=== PATIENT | female | born 1990 | race Caucasian/White ===

== ENCOUNTER 2018-07-14 15:35 | Emergency (ER) | payer MEDICAID, SELFPAY ==
[2018-07-14 15:35] VITALS: BP 119/86; PULSE 74; RESP 16; TEMP 37.2; O2SAT 97; BMI 20.8
--- NOTE | 2018-07-14 15:59 | ED.RN ---
states pain relieves with flexing shouloders and cracking back.
--- NOTE | 2018-07-14 16:02 | ED.VISSUMM ---
- ER Visit Summary Date of Service: 07/14/18 Chief Complaint: Chest and abdominal pain History of Present Illness: The patient is a 27 F who presents with chest and abdominal pain that has been getting worse over the past 3 days. Patient states that she had some pain in her right calf 4 days ago. Patient states the pain is over her entire chest. Patient states she has some pain over the right upper quadrant of her abdomen as well. Patient describes the pain as heaviness and pressure. Patient states the pain is worse with deep breathing and with movement of her torso. Patient states the pain improves with certain positions. Patient admits to some shortness of breath. Patient also admits to couple episodes of reflux symptoms. Patient denies any cough or fever. Patient denies any nausea or vomiting. Patient denies any diaphoresis. Patient denies any cardiac risk factors. Physical Examination: Vital signs are stable. Patient is afebrile. Patient is in no acute distress. Oral mucosa is pink and moist. Neck is supple. Trachea is midline. There is no JVD noted. Heart was regular rate and rhythm. Lungs are clear and equal bilateral. There is adequate respiratory effort noted. Abdomen is soft. Bowel sounds are normal. There is tenderness over the right upper quadrant. There is no rebound or guarding noted. Diaz sign is negative. Cranial nerves II through XII are intact. There are no focal motor or sensory deficits noted. There is some mild tenderness of the right calf. There is no edema noted. There is no pain with dorsiflexion of the ankle. There is some mild pain with plantarflexion of the right ankle however. The remaining physical exam is within normal limits. Test Results: EKG showed a normal sinus rhythm with a rate of 61. There are no acute ST or T-wave changes noted. CBC, comprehensive metabolic profile, d-dimer, troponin were obtained and were all normal. Urinalysis does show evidence of urinary tract infection. Emergency Department Course and Treatment: Patient was given a prescription for Bactrim. Patient was instructed to follow-up with her primary care physician in 5-7 days. Patient understood and was agreeable with the plan. All questions were answered. Disposition: Discharge home Impression: Chest pain of uncertain etiology, urinary tract infection This note was generated with [employer] software. It may contain incorrect words, spelling, and punctuation that were not noted in review of the chart prior to signing ED Disposition - Plan for ED Patient: Disposition: Home or Assisted Living Chief Complaint: Chest Pain Diagnosis: Urinary tract infection, Chest pain of uncertain etiology Instructions: ED Chest Pain Atypical Unkn Cause, ED UTI Cystitis Female Prescriptions: Smz/Tmp Ds [Bactrim Ds] 1 tab PO BID #6 tab Referrals: Ehsan Lynn, TERRESTRIAL ECOLOGIST-C [Primary Care Provider] -
--- NOTE | 2018-07-14 16:06 | ED.DCSUM_ITS ---
- ER Visit Summary Date of Service: 07/14/18 Chief Complaint: Chest and abdominal pain History of Present Illness: The patient is a 27 F who presents with chest and abdominal pain that has been getting worse over the past 3 days. Patient states that she had some pain in her right calf 4 days ago. Patient states the pain is over her entire chest. Patient states she has some pain over the right upper quadrant of her abdomen as well. Patient describes the pain as heaviness and pressure. Patient states the pain is worse with deep breathing and with movement of her torso. Patient states the pain improves with certain positions. Patient admits to some shortness of breath. Patient also admits to couple episodes of reflux symptoms. Patient denies any cough or fever. Patient denies any nausea or vomiting. Patient denies any diaphoresis. Patient denies any cardiac risk factors. Physical Examination: Vital signs are stable. Patient is afebrile. Patient is in no acute distress. Oral mucosa is pink and moist. Neck is supple. Trachea is midline. There is no JVD noted. Heart was regular rate and rhythm. Lungs are clear and equal bilateral. There is adequate respiratory effort noted. Abdomen is soft. Bowel sounds are normal. There is tenderness over the right upper quadrant. There is no rebound or guarding noted. Diaz sign is negative. Cranial nerves II through XII are intact. There are no focal motor or sensory deficits noted. There is some mild tenderness of the right calf. There is no edema noted. There is no pain with dorsiflexion of the ankle. There is some mild pain with plantarflexion of the right ankle however. The remaining physical exam is within normal limits. Test Results: EKG showed a normal sinus rhythm with a rate of 61. There are no acute ST or T-wave changes noted. CBC, comprehensive metabolic profile, d-dimer , troponin were obtained and were all normal. Urinalysis does show evidence of urinary tract infection. Emergency Department Course and Treatment: Patient was given a prescription for Bactrim. Patient was instructed to follow-up with her primary care physician in 5-7 days. Patient understood and was agreeable with the plan. All questions were answered. Disposition: Discharge home Impression: Chest pain of uncertain etiology, urinary tract infection This note was generated with [employer] software. It may contain incorrect words, spelling, and punctuation that were not noted in review of the chart prior to signing ED Disposition - Plan for ED Patient: Disposition: Home or Assisted Living Chief Complaint: Chest Pain Diagnosis: Urinary tract infection, Chest pain of uncertain etiology Instructions: ED Chest Pain Atypical Unkn Cause, ED UTI Cystitis Female Prescriptions: Smz/Tmp Ds [Bactrim Ds] 1 tab PO BID #6 tab Referrals: Ehsan Lynn, ACTOR UNDERSTUDY-C [Primary Care Provider] -
[2018-07-14 16:13] LABS: Absolute Lymphocyte Count 1.73 X10^3/ul (0.83-4.51); Absolute Neutrophil Count 2.7 X10^3/uL (2.0-7.7); Basophil# 0.03 X10^3/uL; Basophil% 0.6 % (0-1); Eosinophil# 0.06 X10^3/uL; Eosinophils% 1.2 % (0-5); Hematocrit 42.2 % (37-47); Lymphocyte # 1.73 X10^3/ul (4.0); Lymphocyte % 35.4 % (19-41); Mean Corp Hgb Conc 33.2 g/gl (32-36); Mean Corpuscular Hgb 30.8 pg (27.0-32.0); Mean Platelet Vol. 10.3 fl (6.2-12.0); Monocyte% 8.2 % (0-10); Neutrophil # 2.67 X10^3/uL (2.7-7.7); Neutrophil % 54.6 % (47-70); Platelet Count 253 K/mm3 (150-450); RBC Distribution Width CV 12.7 % (11.6-14.6); Red Blood Count 4.54 M/mm3 (4.2-5.4); White Blood Count 4.9 K/mm3 (4.4-11.0)
[2018-07-14 16:15] LABS: Mucous, Urine 0 SEEN /hpf (<or=2+)
[2018-07-14 16:16] LABS: Color, Urine Yellow (Yellow); Glucose, Dipstick Normal (Normal); Ketone-Dipstick Negative (Negative); Leukocyte Esterase-Dipstick 500 /ul (Negative); Nitrite-Dipstick Negative (Negative); Occult Blood-Urine 25 /ul (Negative); Protein-Dipstick 15 mg/dl (Negative); Specific Gravity, Urine 1.025 (1.002-1.030); Urine Bilirubin Dipstick Negative (Negative); Urine Clarity Sl. Cloudy (Clear); Urine Urobilinogen Normal (Normal)
[2018-07-14 16:17] LABS: POSITIVE COUNT NO; POSITIVE DIFFERENTIAL NO; POSITIVE MORPHOLOGY NO
[2018-07-14 16:28] LABS: ALB/GLOB Ratio 1.2 RATIO (0.9-2.4); AST(SGOT) 20 U/L (15-37); Alanine Aminotransfer ALT/SGPT 26 U/L (13-56); Alkaline Phosphatase 50 U/L (45-117); Anion Gap 4 (5-15); BUN 13 mg/dL (7-18); BUN/Creat Ratio 17.7 RATIO (10-20); Calcium,Total 8.8 mg/dL (8.5-10.1); Chloride 106 mmol/L (98-107); Creatinine, Serum 0.74 mg/dL (0.55-1.02); EST Glomerular Filtration Rate 101 mL/min (>60); Est Glom Filt Rate - Afr Amer 122 mL/min (>60); Estimated Creatinine Clearance 91.12 ml/min; Globulin 3.4 g/dL (2.2-4.2); Glucose 88 mg/dL (74-106); Lipase 142 U/L (73-393); Potassium 4.3 mmol/L (3.5-5.1); Protein, Total 7.4 g/dL (6.4-8.2); Sodium Level 140 mmol/L (136-145)
[2018-07-14 16:32] LABS: Bacteria 1+ /hpf (None Seen); Red Blood Cells-Urine 0-5 SEEN /hpf (0-5); Squamous Epithelial Cells - UA 5-10 SEEN /hpf (5-10); White Blood Cells 10-25 SEEN /hpf (0-5)
[2018-07-14 16:50] LABS: D-Dimer Quantitative (DVT/PE) 0.41 FEU/ug/m (0.27-0.49)
[2018-07-14 17:39] VITALS: BP 110/76; PULSE 80; RESP 18; O2SAT 98
[2018-07-14 17:55] VITALS: BP 127/66; PULSE 58; RESP 16; O2SAT 97
== END 2018-07-14 17:56 | disposition home or self-care (01) ==
PROVIDERS: Emergency Provider Emergency Medicine; Family Provider Nurse Practitioner Family; PCP Nurse Practitioner Family
DX: R07.9 Chest pain, unspecified (principal); N39.0 Urinary tract infection, site not specified
CPT/HCPCS: 80053; 81001; 83690; 84484; 85025; 85379; 93005; 99283; A4216

== ENCOUNTER → 2019-05-26 15:54 | Outpatient (CLI) | payer MEDICAID, SELFPAY ==
[2019-05-31 16:18] LABS: HPV Reflexed? NOT INDICATED
== END ==
PROVIDERS: PCP Nurse Practitioner Family; Visit Provider Obstetrics & Gynecology
DX: Z12.4 Encounter for screening for malignant neoplasm of cervix (principal)
CPT/HCPCS: 88175; G0145

== ENCOUNTER 2020-02-17 13:15 | Emergency (ER) | payer MEDICAID, SELFPAY ==
[2020-02-17 13:16] VITALS: BP 150/90; PULSE 103; RESP 16; TEMP 37.4; BMI 20.7
--- NOTE | 2020-02-17 13:27 | ED.DCSUM_ITS ---
History of Present Illness Chief Complaint: Rash Informant: Patient Onset: Yesterday Context: Gradual Onset Timing: Continuous Current Severity: Moderate Maximum Severity: Severe Narrative: The patient is a 29-year-old female that presents to the emergency department diffuse rash. Started yesterday as a small spot on her left wrist. Since then it is increased. She describes it as intensely burning and itching. She actually went to an outside emergency department. She was diagnosed with a contact dermatitis and given a prescription for prednisone. She states she has not filled it, but her symptoms have worsened. She denies any fevers or chills. She denies any new lotions, soaps, shampoos. She states she is never had anything like this before. Prior similar symptoms: No Recent Illness/Hospitalization: No Past Medical History - Allergies and Home Meds Allergies/Adverse Reactions: Allergies morphine Adverse Reaction (Verified 02/17/20 13:18) Itching Primary Care Physician: Ehsan Lynn, [employer]-C [NON-STAFF] - Prior records reviewed: Yes Past Medical History: None Surgical History: noncontributory Smoking Status: Current some day smoker Review of Systems General: Denies: Chills, Fever, Sweats Eyes: Denies: Visual changes - bilaterally, Diplopia ENT: Denies: Rhinorrhea, Sore throat Cardiovascular: Denies: Chest pain, Palpitations Respiratory: Denies: Dyspnea, Cough, Dyspnea on exertion Gastrointestinal: Denies: Abdominal pain, Nausea, Vomiting, Diarrhea, Melena, Hematochezia Genitourinary: Denies: Dysuria, Hematuria, Frequency Musculoskeletal: Denies: Back pain, Extremity Pain Skin: Reports: Rash. Denies: Wounds Neurological: Denies: Headache, Weakness, Numbness Physical Exam Vital Signs/Narrative: Vital Signs Temp Pulse Resp BP 02/17/20 13:16 99.3 F H 103 H 16 150/90 H Inital Vital Signs reviewed: Yes General: Well nourished, Well developed, No Acute Distress Head: Normocephalic, Atraumatic Eyes: Perrl, EOMI ENT: Moist mucous membranes, No rhinorrhea Neck: Supple, Nontender Cardiovascular: Regular rate, Regular rhythm, No murmurs Respiratory: No distress, CTA bilaterally, Chest nontender Abdomen: Soft, Nontender, Nondistended, Normal bowel sounds Back: Nontender, Normal Inspection Extremities: Nontender, No edema Skin: Normal color, Rash - Linear eruptions on both hands, dorsum of both arms, but no cellulitis. Scant weeping. Neurological: Alert, Oriented x3, Cranial nerves II-XII grossly intact, Normal Strength, Normal Sensation Psychological: Normal affect, Normal Mood Diagnostic/Tx/Re-eval - Medical Decision Making The patient has physical exam findings consistent with contact dermatitis. It is been going on for 24 hours and has acutely worsened. She has been on no new medications. There are linear eruptions. I do not feel this represents Linares-Eddie, erysipelas, or other dangerous process. The patient was treated with Kenalog and Vistaril with some improvement. She will get her prednisone filled. I will write her Vistaril to help with her itching. She will be discharged home. Impression 1. Contact dermatitis ED Disposition - Plan for ED Patient: Instructions: Poison Cookie Dermatitis Prescriptions: Hydroxyzine Pamoate [Vistaril] 50 mg PO 4X/DAY PRN PRN #60 cap PRN Reason: Itching Prescription Printed Referrals: Ehsan Lynn, VENTURA-C [NON-STAFF] -
[2020-02-17] MEDS: hydrOXYzine 50 MG/ML Vial IM (13:31)
[2020-02-17] MEDS: Triamcinolone Acetonide 40 MG/ML Vial IM (13:31)
[2020-02-17 14:22] VITALS: BP 114/78; PULSE 80; RESP 18
== END 2020-02-17 14:22 | disposition home or self-care (01) ==
PROVIDERS: Emergency Provider Emergency Medicine
DX: L23.7 Allergic contact dermatitis due to plants, except food (principal); F17.200 Nicotine dependence, unspecified, uncomplicated
CPT/HCPCS: 96372; 99283

== ENCOUNTER → 2020-11-29 10:46 | Outpatient (CLI) | payer MEDICAID, SELFPAY ==
[2020-12-01 20:07] LABS: Chlamydia By Nucleic Acid AMP Negative (Negative)
[2020-12-01 20:43] LABS: Gonococcus By Nucleic Acid AMP Negative (Negative)
== END ==
PROVIDERS: Visit Provider Obstetrics & Gynecology
DX: Z11.3 Encounter for screening for infections with a predominantly sexual mode of transmission (principal)
CPT/HCPCS: 87491; 87591

== ENCOUNTER → 2022-03-25 | Outpatient (CLI) | payer MEDICAID, SELFPAY | END | disposition home or self-care (01) | PROVIDERS: Visit Provider Obstetrics & Gynecology | DX: L29.2 Pruritus vulvae (principal) ==

== ENCOUNTER 2024-07-01 15:26 | Emergency (ER) | payer MEDICAID, SELFPAY ==
[2024-07-01 15:26] VITALS: BP 119/78; BP 89/55; PULSE 74; PULSE 83; RESP 12; RESP 14; TEMP 36.1; O2SAT 95; O2SAT 98; BMI 24.3
--- NOTE | 2024-07-01 15:39 | EDS_ITS ---
HPI History of Present Illness Chief Complaint: Rash [facility] Medical History no medical history Home Medications ?Medication ?Instructions ?Recorded ?Last Taken ?Type hydroxyzine pamoate 50 mg capsule 50 mg PO 4X/DAY PRN PRN Itching 02/17/20 Unknown Rx #60 caps hydroxyzine HCl 50 mg tablet 50 mg PO TID PRN itching #30 tabs 07/01/24 Unknown Rx prednisone 20 mg tablet 20 mg PO DAILY #5 tabs 07/01/24 Unknown Rx Allergy/AdvReac Type Severity Reaction Status Date / Time morphine AdvReac Itching Verified 07/01/24 15:26 Social History Smoking Status: Current some day smoker EXAM Physical Exam Const Vital Signs: 07/01/24 15:26 07/01/24 15:26 Temperature 97 F L Temperature Source Temporal Pulse Rate 74 83 Respiratory Rate 14 12 Blood Pressure 119/78 89/55 L Blood Pressure Mean 91 66 Pulse Ox 98 95 Oxygen Delivery Method Room Air MDM MDM MDM Narrative Medical decision making narrative: HISTORY OF PRESENT ILLNESS: 33-year-old female presents with concern for poison cookie. She states she came in contact with what she believes is poison cookie yesterday. She notes she bumped her right eye with her right hand and her left knee. She now has lesions that are familiar to her as representing poison cookie. REVIEW OF SYSTEMS: Pertinent positives: Rash Pertinent negatives: Fever, vomiting PHYSICAL EXAM: Nursing triage notes reviewed, Vital signs reviewed Constitutional: please see mdm Lungs: Clear to auscultation, No wheezing or rales. No increased work of breathing, no conversational dyspnea, no accessory muscle use, no nasal flaring. No respiratory distress noted Heart: Regular rate and rhythm, No murmurs, No rubs and No gallops, 2+ distal pulses (radial, femoral, posterior tibial) in all extremities Abdomen: Soft, there is no tenderness, rigidity, rebound or guarding, no obvious peritoneal signs, no palpable pulsatile abdominal masses, no auscultated abdominal bruit : No CVAT Extremities: No edema Skin: Erythema noted as below MEDICAL DECISION MAKING: Chief Complaint: Rash External records reviewed: Prior ED records reviewed: ED visit from 2019 was reviewed and showed diagnosis of contact dermatitis Factors affecting care: Contact dermati Social determinants of health: none [] History obtained from others: none Consults: none MDM Narrative: Patient was initially hemodynamically stable, afebrile and nontoxic-appearing. Exam with slight erythema noted to the right upper eyelid, between the second and third digit of the right hand as well as on the left knee. These lesions are not warm that are blanchable there is no obvious vesicle. No obvious crepitus or bullae. There is no drainage. Clinically consistent with likely plant based dermatitis. Will give empiric steroids I considered the following differential diagnosis: Contact dermatitis, cellulitis, plant based dermatitis, Exam consistent with likely plant based dermatitis. Will give steroids here in the ED in the form of Decadron and an oral prescription of prednisone. Will give hydroxyzine for itching relief The patient and/or family, caregivers express understanding. The patient and/or family, caregivers agrees with the plan. Shared decision making: I will have a discussion with the patient and or visitors regarding risk/benefits of further testing or admission. They will be made aware of of the risk/benefits inherent in this decision they will be given the opportunity to voice understanding. Total critical care time today provided was at least 0 minutes. This excludes separately billable procedures. Critical care time (if documented) is secondary to the patient having high probability of clinically significant/life threatening deterioration in the patient's condition which required my urgent intervention. Impression: 1. Contact dermatitis 2. Poison cookie Dispo: Discharge home This note was generated with [employer] dictation software. It may contain incorrect words, spelling, and punctuation that were not noted in review of the chart prior to signing. Discharge Plan Triage Chief Complaint: Rash ED Provider: Jayy Stevens Dx/Rx/DC Orders Instructions: ED Poison Cookie Rash Prescriptions: New prednisone 20 mg tablet 20 mg PO DAILY Qty: 5 0RF hydroxyzine HCl 50 mg tablet 50 mg PO TID PRN (Reason: itching) Qty: 30 0RF No Action hydroxyzine pamoate 50 MG capsule 50 mg PO 4X/DAY PRN PRN (Reason: Itching) Qty: 60 0RF Primary Care Provider: Care Physician,No Primary Referrals: Syd Raya DO [Med Staff - [facility]] - Activity Restrictions/Additional Instructions: Thank you for trusting us with your care today! Please take Tylenol (2 pills, 650 mg), ibuprofen (2 pills, 400 mg) every 6 hours as needed for pain and fever control. Please take prednisone as prescribed. Please take hydroxyzine as needed for itching relief. Please try not to itch or irritate the area as this can lead to secondary infec tion Please return to the emergency department if your symptoms change or worsen. Specifically if you notice redness, swelling get worse over the next 2 to 3 days. If you develop fever, the area appears warm and has drainage of yellow or green fluid. These are signs of infection will require antimicrobial therapy if they develop. Please follow with your primary care physician for further outpatient evaluation and management. Print Language: Albanian Disposition Disposition: Home, Self Care
[2024-07-01] MEDS: dexAMETHasone 10 MG/ML Vial IM (15:57)
[2024-07-01 16:02] VITALS: BP 95/77; PULSE 81; RESP 16; TEMP 37.2; O2SAT 99
== END 2024-07-01 16:14 | disposition home or self-care (01) ==
PROVIDERS: Emergency Provider Emergency Medicine; PCP Nurse Practitioner Family; Visit Provider Emergency Medicine
DX: L23.7 Allergic contact dermatitis due to plants, except food (principal); F17.200 Nicotine dependence, unspecified, uncomplicated
CPT/HCPCS: 96372; 99282

== ENCOUNTER 2024-07-24 17:23 | Emergency (ER) | payer MEDICAID, SELFPAY ==
[2024-07-24 17:25] VITALS: BP 118/84; PULSE 75; RESP 18; TEMP 36.6; O2SAT 100; BMI 24.3
--- NOTE | 2024-07-24 17:52 | EDS_ITS ---
HPI <OLE Wheatley - Last Filed: 07/24/24 18:29> HPI - Female History of Present Illness Chief Complaint: Female C/O Narrative Narrative: Patient presenting today due to concerns for chlamydia. She had unprotected intercourse about 1 week ago, she found out that her partner was exposed to somebody else who has chlamydia. She would like to be treated. She reports that she has been having an odorous white-colored discharge and vaginal irritation. She reports intermittent pelvic pain. She denies fevers, chills, abdominal pain, nausea, and vomiting. PFSH <OLE Wheatley - Last Filed: 07/24/24 18:29> [facility] Home Medications ?Medication ?Instructions ?Recorded ?Last Taken ?Type hydroxyzine pamoate 50 mg capsule 50 mg PO 4X/DAY PRN PRN Itching 02/17/20 Unknown Rx #60 caps hydroxyzine HCl 50 mg tablet 50 mg PO TID PRN itching #30 tabs 07/01/24 Unknown Rx prednisone 20 mg tablet 20 mg PO DAILY #5 tabs 07/01/24 Unknown Rx doxycycline hyclate 100 mg capsule 100 mg PO BID 7 days #13 caps 07/24/24 Unknown Rx metronidazole 500 mg tablet 500 mg PO BID #13 tabs 07/24/24 Unknown Rx Allergy/AdvReac Type Severity Reaction Status Date / Time morphine AdvReac Itching Verified 07/24/24 17:25 Social History Smoking Status: Current some day smoker tobacco type: cigarettes ROS <OLE Wheatley - Last Filed: 07/24/24 18:29> ROS ED Constitutional Constitutional ED: Denies chills or fever(s) Cardiovascular Cardiovascular: Denies chest pain Respiratory/Chest Respiratory/Chest: Denies dyspnea Gastrointestinal Gastrointestinal: Denies abdominal pain, nausea or vomiting Genitourinary Genitourinary ED: Denies dysuria, hematuria or urinary urgency Musculoskeletal Musculoskeletal: Denies arthralgias or myalgias Integumentary Denies rash Neurologic Neurologic: Denies weakness EXAM <OLE Wheatley - Last Filed: 07/24/24 18:29> Physical Exam Const Vital Signs: 07/24/24 17:25 07/24/24 18:18 Temperature 97.8 F 98.1 F Temperature Source Temporal Pulse Rate 75 82 Respiratory Rate 18 19 H Blood Pressure 118/84 H 116/87 H Blood Pressure Mean 95 96 Pulse Ox 100 97 Oxygen Delivery Method Room Air <Dr. John Cronin, - Last Filed: 07/24/24 18:39> Physical Exam Const Vital Signs: 07/24/24 17:25 07/24/24 18:18 Temperature 97.8 F 98.1 F Temperature Source Temporal Pulse Rate 75 82 Respiratory Rate 18 19 H Blood Pressure 118/84 H 116/87 H Blood Pressure Mean 95 96 Pulse Ox 100 97 Oxygen Delivery Method Room Air MDM <Lydia Allen PA - Last Filed: 07/24/24 18:29> MDM MDM Narrative Medical decision making narrative: Patient presenting today requesting to be tested for STDs. She had a recent sexual partner who was exposed to chlamydia and she would like to be treated for this along with other STDs. She has been having foul-smelling vaginal discharge and intermittent pelvic discomfort. I did offer to perform a pelvic exam, she declines. She will be tested for gonorrhea, chlamydia, trichomonas. UA is negative for UTI and . She be treated here with Rocephin, doxycycline, and Flagyl. She will be given prescriptions for Doxy and Flagyl. I encouraged that she notify all sexual partners of any positive results and she refrain from intercourse until her symptoms have resolved and she is done with her antibiotics. Return instructions were discussed, patient discharged in stable condition. Lab Data Attestation: I reviewed the patient's lab results. Labs: Laboratory Results - last 24 hr 07/24/24 17:54 Urine Color Yellow Urine Clarity Sl. Cloudy Urine pH 5.0 Ur Specific Chambers 1.030 Urine Protein 30 H Urine Glucose (UA) Normal Urine Ketones 5 H Urine Occult Blood 50 H Urine Nitrite Negative Urine Bilirubin 1 H Urine Urobilinogen 1 H Ur Leukocyte Esterase 100 H Urine RBC 5-10 SEEN Urine WBC 10-25 SEEN Ur Squamous Epith Cells 0-5 SEEN Calcium Oxalate Crystal 1+ Amorphous Sediment 1+ Urine Bacteria RARE Urine Mucus 0 SEEN Urine Test Negative <Dr. John Cronin DO - Last Filed: 07/24/24 18:39> MDM MDM Narrative Medical decision making narrative: Patient presenting today requesting to be tested for STDs. She had a recent sexual partner who was exposed to chlamydia and she would like to be treated for this along with other STDs. She has been having foul-smelling vaginal discharge and intermittent pelvic discomfort. I did offer to perform a pelvic exam, she declines. She will be tested for gonorrhea, chlamydia, trichomonas. UA is negative for UTI and . She be treated here with Rocephin, doxycycline, and Flagyl. She will be given prescriptions for Doxy and Flagyl. I encouraged that she notify all sexual partners of any positive results and she refrain from intercourse until her symptoms have resolved and she is done with her antibiotics. Return instructions were discussed, patient discharged in stable condition. I have personally performed a face to face assessment of the patient and have reviewed the CULLEN note. I personally made/approved the management plan and take responsibility for the patient management. I performed a substantive portion of the visit including all aspects of the following. My thao findings include: There are concerns for STDs with increasing vaginitis malodorous white discharge for last 2 days. New partner a week ago. From not that partner exposed to chlamydia. She had chlamydia back in high school. Allergies to morphine. No antibiotic allergies. Exam alert nontoxic soft abdomen. She declines a pelvic exam. Urine sent for GC chlamydia and trichomonas. She is given Rocephin in the ED 7-day course of Doxy and Flagyl for coverage of chlamydia trichomonas and bacterial vaginosis. Lab Data Labs: Laboratory Results - last 24 hr 07/24/24 17:54 Urine Color Yellow Urine Clarity Sl. Cloudy Urine pH 5.0 Ur Specific Chambers 1.030 Urine Protein 30 H Urine Glucose (UA) Normal Urine Ketones 5 H Urine Occult Blood 50 H Urine Nitrite Negative Urine Bilirubin 1 H Urine Urobilinogen 1 H Ur Leukocyte Esterase 100 H Urine RBC 5-10 SEEN Urine WBC 10-25 SEEN Ur Squamous Epith Cells 0-5 SEEN Calcium Oxalate Crystal 1+ Amorphous Sediment 1+ Urine Bacteria RARE Urine Mucus 0 SEEN Urine Test Negative Discharge Plan Triage Chief Complaint: Female C/O ED Midlevel Provider: Lydia Allen ED Provider: John Cronin Dx/Rx/DC Orders Clinical Impression: Encounter for assessment of STD exposure, Vaginitis Instructions: If You Think You Have an STI (STD) Prescriptions: New doxycycline hyclate 100 mg capsule 100 mg PO BID 7 Days Qty: 13 0RF metronidazole 500 mg tablet 500 mg PO BID Qty: 13 0RF No Action hydroxyzine pamoate 50 MG capsule 50 mg PO 4X/DAY PRN PRN (Reason: Itching) Qty: 60 0RF prednisone 20 mg tablet 20 mg PO DAILY Qty: 5 0RF hydroxyzine HCl 50 mg tablet 50 mg PO TID PRN (Reason: itching) Qty: 30 0RF Primary Care Provider: Kindra Nelson NP Referrals: Ehsan Lynn NP, MANAGED CARE COORDINATOR-C [Non-Staff] - Activity Restrictions/Additional Instructions: Please notify any sexual partners if you are positive. Return for any concerning or worsening symptoms. Print Language: American Disposition Disposition: Home, Self Care
[2024-07-24 18:16] LABS: Mucous, Urine 0 SEEN /hpf (<or=2+)
[2024-07-24 18:18] VITALS: BP 116/87; PULSE 82; RESP 19; TEMP 36.7; O2SAT 97
[2024-07-24] MEDS: metroNIDAZOLE 500 MG Tablet PO (18:21)
[2024-07-24] MEDS: Doxycycline 100 MG CAPSULE PO (18:21)
[2024-07-24 18:22] LABS: Color, Urine Yellow (Yellow); Glucose, Dipstick Normal (Normal); Ketone-Dipstick 5 mg/dl (Negative); Leukocyte Esterase-Dipstick 100 /ul (Negative); Nitrite-Dipstick Negative (Negative); Occult Blood-Urine 50 /ul (Negative); Protein-Dipstick 30 mg/dl (Negative); Urine Clarity Sl. Cloudy (Clear); Urine Urobilinogen 1 mg/dl (Normal)
[2024-07-24] MEDS: Ceftriaxone 500 MG Vial IM (18:22)
[2024-07-24 18:24] LABS: Urine Bilirubin Dipstick 1 mg/dL (Negative)
[2024-07-24 18:25] LABS: Internal QC Validated? YES +Cl - CLEAR BKGD; Pregnancy, Urine Negative Negative
[2024-07-24 18:26] LABS: Record Kit Lot#,Urine Preg 772476
[2024-07-24 18:29] LABS: Red Blood Cells-Urine 5-10 SEEN /hpf (0-5); White Blood Cells 10-25 SEEN /hpf (0-5)
[2024-07-24 18:30] LABS: Amorphous Sediment 1+; Bacteria RARE /hpf (None Seen); Calcium Oxalate Crystals Ur 1+ /hpf (<or=2+); Squamous Epithelial Cells - UA 0-5 SEEN /hpf (5-10)
== END 2024-07-24 19:03 | disposition home or self-care (01) ==
LOC: ED 18:25
PROVIDERS: Physician Assistant; Emergency Provider Emergency Medicine; PCP Nurse Practitioner Family; Visit Provider Emergency Medicine
DX: Z11.3 Encounter for screening for infections with a predominantly sexual mode of transmission (principal); N76.0 Acute vaginitis; F17.210 Nicotine dependence, cigarettes, uncomplicated
CPT/HCPCS: 81001; 81025; 87491; 87591; 87661; 96372; 99282

== ENCOUNTER 2024-09-20 20:32 | Emergency (ER) | payer MEDICAID, SELFPAY ==
[2024-09-20 20:33] VITALS: BP 113/79; PULSE 60; RESP 18; TEMP 35.9; O2SAT 99; BMI 24.6
[2024-09-20 20:45] LABS: Mucous, Urine 0 SEEN /hpf (<or=2+)
[2024-09-20 20:47] LABS: Color, Urine Yellow (Yellow); Glucose, Dipstick Normal (Normal); Ketone-Dipstick Negative (Negative); Leukocyte Esterase-Dipstick 100 /ul (Negative); Nitrite-Dipstick Negative (Negative); Occult Blood-Urine 50 /ul (Negative); Protein-Dipstick 15 mg/dl (Negative); Specific Gravity, Urine 1.025 (1.002-1.030); Urine Bilirubin Dipstick Negative (Negative); Urine Clarity Clear (Clear); Urine Urobilinogen Normal (Normal)
[2024-09-20 20:53] LABS: Absolute Lymphocyte Count 2.78 X10^3/uL (0.83-4.51); Absolute Neutrophil Count 4.3 X10^3/uL (2.0-7.7); Basophil# 0.06 X10^3/uL; Basophil% 0.7 % (0-1); Eosinophils% 2.4 % (0-5); Hematocrit 40.7 % (37-47); Hemoglobin 13.8 g/dL (12.0-15.0); Lymphocyte # 2.78 X10^3/ul (0.83-4.51); Mean Corp Hgb Conc 33.9 g/dL (32-36); Mean Corpuscular Hgb 30.3 pg (27.0-32.0); Mean Corpuscular Volume 89.3 fL (81-99); Mean Platelet Vol. 9.7 fl (6.2-12.0); Monocyte# 0.83 X10^3/uL; Monocyte% 10.1 % (0-10); NRBC Flagged by Analyzer 0 % (0-5); Neutrophil # 4.29 X10^3/uL (2.7-7.7); Neutrophil % 52.6 % (47-70); Platelet Count 301 K/mm3 (150-450); RBC Distribution Width CV 11.9 % (11.6-14.6); RBC Distribution Width SD 38.4 fl (35.1-43.9); Red Blood Count 4.56 M/mm3 (4.2-5.4); White Blood Count 8.2 K/mm3 (4.4-11.0)
[2024-09-20 20:54] LABS: Bacteria 1+ /hpf (None Seen); Squamous Epithelial Cells - UA 0-5 SEEN /hpf (5-10); White Blood Cells 0-5 SEEN /hpf (0-5)
[2024-09-20 20:55] LABS: Red Blood Cells-Urine 0-5 SEEN /hpf (0-5)
[2024-09-20 21:05] LABS: Internal QC Validated? YES +Cl - CLEAR BKGD; Pregnancy, Serum, hCG Quali. NEGATIVE Negative
[2024-09-20 21:06] LABS: Anion Gap 4 (5-15); BUN 14 mg/dL (7-18); BUN/Creat Ratio 17.9 RATIO (10-20); Calcium,Total 9.2 mg/dL (8.5-10.1); Chloride 107 mmol/L (98-107); Creatinine, Serum 0.78 mg/dL (0.55-1.02); EST Glomerular Filtration Rate 90 mL/min (>60); Est Glom Filt Rate - Afr Amer 109 mL/min (>60); Estimated Creatinine Clearance 84.79 ml/min; Glucose 98 mg/dL (74-106); Potassium 3.7 mmol/L (3.5-5.1); Sodium Level 139 mmol/L (136-145)
[2024-09-20 22:59] VITALS: BP 124/75; PULSE 63; RESP 16; O2SAT 98
--- OUTSIDE RECORDS SUMMARY | 2024-09-20 23:22 | XMS RPT_ITS | CCD ---
Author Organization [facility]form[facility] Partnership [facility] Care Team Providers Care Station Baggage Porter Name Role Phone GRACE CASTRON - LEAD DATA ENTRY OPERATOR, EHSAN Piper Primary Care Phys ician Spring PT, Arlet Unavailable Unavailable GRACE QUEZADA - LEAD DATA ENTRY OPERATOR, EHSAN Piper Primary Care U avinash SALAZAR MD, DR AJIT Sandoval Attending Unavailable MASSIMO ELECTRIC APPLIANCE INSTALLER-LEAD DATA ENTRY OPERATOR, YRAN Salvador Attending Un available GRACE QUEZADA - LEAD DATA ENTRY OPERATOR, EHSAN Piper Primary Care U avinash LYNN ELECTRIC APPLIANCE INSTALLER - LEAD DATA ENTRY OPERATOR, EHSAN Piper Primary Care U navailable NITA ELECTRIC APPLIANCE INSTALLER-LEAD DATA ENTRY OPERATOR, SACHIN Attending Irmavai yao Lynn CNP, Ehsan Piper Primary Care Provider Allergies Allergy Classification Reported Allergen(s) Allergy Type Date of Onset Reaction(s) Facility (9 sources) Morphine; Translations: [morphine] Drug Allergy 02-04-2013 [facility] (2 sources) Prochlorperazine ; Translations: [prochlorperazin e] Drug Allergy [facility] [place] Comment on above: Severe anxiety Medications Current Medications Medication Drug Class(es) Dates Sig (Normalized) Sig (Original) acetaminophen 325 mg / butalbital 50 mg / caffeine 40 mg oral tablet (1 source) Barbiturate, Central Nervous System Stimulant, Methylxanthine Start: 08-16-2023 End: 08-19-2023 take 1 tablet by mouth every four hours as needed APAP/butalbital/c affeine 325-50-40 mg oral tablet (Fioricet) Dose = 1 tab(s), Oral, q4h, PRN as needed, X 3 day(s), # 18 tab(s), 0 Refill(s) Start Date: 08/16/23 Stop Date: 08/19/23 Status: Ordered albuterol MDI (90 mcg/inh) CFC free inhalation aerosol (7 sources) Start: 11-28-2021 End: 12-28-2021 take 2 puff(s) by inhalation every six hours albuterol MDI (90 mcg/inh) CFC free inhalation aerosol 2 puff(s), Inhalation, q6h, # 18 gram(s), 0 Refill(s), Pharmacy: [id number], Leukocytosis Neutrophilia, 157.5, cm, 11/28/21 9:22:00 EST, Height, kg, 11/28/21 9:17:00 EST, Dosing Weight Start Date: 11/28/21 Stop Date: 12/28/21 Status: Ordered Start: 08-21-2021 take 2 puff(s) by in halation every four hours as needed for wheezing albuterol MDI (90 mcg/inh) CFC free inhalation aerosol 2 puff(s), Inhalation, q4h, PRN as needed for wheezing, # 18 gram(s), 0 Refill(s), Pharmacy: [email or web address], Chest congestion, 157.5, cm, 08/21/21 10:07:00 EDT, Height, kg, 08/21/21 10:07:00 EDT, Dosing Weight Start Date: 08/21/21 Status: Ordered copper 313 mg drug implant (2 sources) Copper-containing Intrauterine Device Start: 08-26-2023 ParaGard intrauterine device 0 Refill(s) Start Date: 08/26/23 Status: Ordered dexamethasone 6 mg oral tablet (2 sources) Corticosteroid Start: 11-28-2021 End: 12-08-2021 dexamethasone 6 mg oral tablet Dose : 6 mg = 1 tab(s), Oral, qDay, X 10 day(s), # 10 tab(s), 0 Refill(s), 12/08/21 19:08:00 EST, Pharmacy: [email or web address], Leukocytosis Neutrophilia, 157.5, cm, 11/28/21 9:22:00 EST, Height, kg, 11/28/21 9:17:00 EST, Dosing Weight Start Date: 11/28/21 Stop Date: 12/08/21 Status: Ordered guaiFENesin 600 mg oral tablet (2 sources) Start: 11-28-2021 End: 12-05-2021 guaiFENesin 600 mg oral tablet, extended release Dose : 600 mg = 1 tab(s), Oral, q12h, X 7 day(s), # 14 tab(s), 0 Refill(s), 12/05/21 19:09:00 EST, Pharmacy: [email or web address], Leukocytosis Neutrophilia, 157.5, cm, 11/28/21 9:22:00 EST, Height, kg, 11/28/21 9:17:00 EST, Dosing Weight Start Date: 11/28/21 Stop Date: 12/05/21 Status: Ordered levoFLOXacin 750 mg oral tablet (2 sources) Quinolone Antimicrobial Start: 11-28-2021 End: 12-08-2021 levoFLOXacin 750 mg oral tablet Dose : 750 mg = 1 tab(s), Oral, q24h, X 10 day(s), # 10 tab(s), 0 Refill(s), 12/08/21 19:08:00 EST, Pharmacy: [email or web address], Leukocytosis Neutrophilia, 157.5, cm, 11/28/21 9:22:00 EST, Height, 59.9, kg, 11/28/21 9:17:00 EST, Dosing Weight Start Date: 11/28/21 Stop Date: 12/08/21 Status: Ordered Promethazine (2 sources) Phenothiazine Start: 11-28-2021 End: 12-08-2021 Promethazine DM 6.25 mg-15 mg/5 mL oral syrup Dose = 5 mL, Oral, q6hr, PRN for cough, not to exceed 6 doses/day, X 10 day(s), # 200 mL, 0 Refill(s), Pharmacy: [id number], Leukocytosis Neutrophilia, 157.5, cm, 11/28/21 9:22:00 EST, Height, kg, 11/28/21 9:17:00 EST, Dosing Weight Start Date: 11/28/21 Stop Date: 12/08/21 Status: Ordered SUMAtriptan 50 mg oral tablet (1 source) Serotonin-1b and Serotonin-1d Receptor Agonist Start: 08-26-2023 End: 09-25-2023 SUMAtriptan 50 mg oral tablet Dose : 50 mg = 1 tab(s), Oral, qDay, PRN as needed for migraine headache, 1 tab onset , may repeat in 2 hrs. MAX 4 tab(s)/24hrs, X 30 day(s), # 9 tab(s), 0 Refill(s), 09/25/23 10:07:00 AM EDT, Pharmacy: [email or web address], 158, cm, 08/26/23 9:02:00 EDT, Height, kg, 08/26/23 9:02:00 EDT, Dosing Weight Start Date: 08/26/23 Stop Date: 09/25/23 Status: Ordered Completed/Discontinued Medications Medication Drug Class(es) Dates Sig (Normalized) Sig (Original) diclofenac sodium 50 mg delayed release oral tablet (2 sources) Nonsteroidal Anti-inflammatory Drug Start: 08-26-2023 End: 09-25-2023 diclofenac sodium 50 mg oral delayed release tablet Dose : 50 mg = 1 tab(s), Oral, q6h, PRN as needed for pain, # 30 tab(s), 0 Refill(s), Pharmacy: [email or web address], 158, cm, 08/26/23 9:02:00 EDT, Height, kg, 08/26/23 9:02:00 EDT, Dosing Weight Start Date: 08/26/23 Stop Date: 09/25/23 Status: Ordered methadone hydrochloride 5 mg oral tablet (6 sources) Opioid Agonist Start: 08-26-2023 methadone 5 mg oral tablet Dose : 5 mg = 1 tab(s), Oral, q6h, PRN as needed for pain, 0 Refill(s), 59 Start Date: 08/26/23 Status: Ordered Start: 09-27-2020 methadone See Instructions, 24mg Oral, 0 Refill(s), 50 Start Date: 09/27/20 Status: Ordered Start: 09-27-2020 take 2 tablets by mo uth once daily methadone (DOLOPHINE) 10 mg tablet Take 20 mg by mouth once daily. 09/27/2020 Active Problems Problem Classification Problem Date Documented Da te Episodic/Chronic Esophageal disorders (8 sources) Gastroesophageal reflux disease 10-05-2020 Chronic Headache; including migraine (11 sources) Headache; Translations: [Headache, unspecified] 12-21-2020 Episodic Menstrual disorders (5 sources) Irregular periods; Translations: [Irregular menstruation, unspecified] Chronic Nonmalignant breast conditions (5 sources) Pain of breast; Translations: [Mastodynia] Episodic Other acquired deformities (8 sources) Scoliosis of thoracic spine 10-01-2020 Chronic Comment on above: XR of Thorasic Spine MPRESSION: Minimal S-shaped curvature and multilevel degenerative changes. Other circulatory disease (8 sources) Postural orthostatic tachycardia syndrome 12-21-2020 Episodic Other connective tissue disease (8 sources) Spasm 12-21-2020 Episodic Other injuries and conditions due to external causes (1 source) Injury of left foot; Translations: [Unspecified injury of left foot, initial encounter] 11-11-2021 Episodic Other nervous system disorders (8 sources) Chronic back pain greater than three months duration 09-27-2020 Chronic Other non-traumatic joint disorders (1 source) Acute ankle pain; Translations: [Pain in left ankle and joints of left foot] 11-11-2021 Episodic Residual codes; unclassified (4 sources) Past history of procedure 12-17-2021 Episodic Comment on above: ECHO Summary: 1. Left ventricle: The cavity size is normal. Wall thickness is normal. Systolic function is normal. The estimated ejection fraction is 60-65%. Wall motion is normal; there are no regional wall motion abnormalities. Normal diastolic function. 2. Right ventricle: The RV systolic pressure by Doppler is 10 mm Hg. 3. Right atrium: The estimated right atrial pressure is 3 mm Hg. Spondylosis; intervertebral disc disorders; other back problems (8 sources) Degeneration of thoracolumbar intervertebral disc 10-05-2020 Chronic Comment on above: 09/2020: X-ray of th oracic spine results: Minimal S-shaped curvature of the thoracic spine. There are areas of disc height loss and osteophyte formation in the lower thoracic spine consistent with degenerative changes. Substance-related disorders (16 sources) History of drug abuse; Translations: [History of substance abuse] 12-21-2020 Chronic Unclassified (7 sources) History of SARS-CoV-2 11-28-2021 Results Test Name Value Interpretation Reference Range Facility XR WRIST MINIMUM 3 VIEWS RIG HTon 04-22-2024 XR WRIST MINIMUM 3 VIEWS RIGHT ORIGINAL EXAMINATION: THREE XRAY VIEWS OF THE RIGHT WRIST 04/20/2024 11:12 am COMPARISON: None. HISTORY: ORDERING SYSTEM PROVIDED HISTORY: Reason for Exam: right wrist pain x1 year. FINDINGS: Carpal bones and alignment are maintained. Distal radius and ulna are intact. No acute fracture or dislocation. IMPRESSION: Normal wrist radiographs Interpreted by: Artur Negron DO Preliminary Report By: Artur Negron DO Electronically signed By Artur Negron DO Dictated Date: 04/22/2024 3:39:21 PM Prelim Date: 04/22/2024 3:39:37 PM Sign Date: 04/22/2024 3:39:37 PM Ordering Provider: RYAN KEYS Normal [facility] ([place]) [id number] 08-26-2023 Free T4 [Mass/Vol] 1.26 ng/dL Normal 0.76-1.46 [facility] ([place]) Comment on above: Performed By: #### F T4, TSH, MONO #### [address] [address] LABORATORYOrdered By: SYSTEM SYSTEM on 08-26-2023 Free T4 [Mass/Vol] 1.26 ng/dL Invalid Interpretation Code 0.76 - 1.46 ng/dL AO ADM SS TSH Qn 0.71 m[IU]/L Invalid Interpretation Code 0.36 - 3.74 mcIU/mL AO ADM SS LABORATORYOrdered By: Susan Powers on 08-26-2023 Heterophile Ab LA Ql (S) Negative (08/26/23 10:30 AM) Invalid Interpretation Code Negative AO Rapid Testing SS MONOon 08-26-2023 Mononucleosis Negative Normal Negative [facility] ([place]) Comment on above: Performed By: #### F T4, TSH, MONO #### [address] [address] TSHon 08-26-2023 TSH Qn 0.71 m[IU]/L Normal 0.36-3.74 [facility] ([place]) Comment on above: Performed By: #### F T4, TSH, MONO #### [address] [address] [address] HEAD OR BRAIN W/O CONTRAS Ton 08-17-2023 CT HEAD OR BRAIN W/O CONTRAST ORIGINAL EXAMINATION: CT OF THE HEAD WITHOUT CONTRAST08/16/2023 10:[address] HEAD/BRAIN WITHOUT CONTRAST TECHNIQUE: CT of the head was performed without the administration of intravenous contrast. Automated exposure control, iterative reconstruction, and/or weight based adjustment of the mA/kV was utilized to reduce the radiation dose to as low as reasonably achievable. Axial CT images from skull base to vertex without IV contrast. This exam was performed according to our departmental dose optimization program, and includes the following measures where applicable: automated exposure control, adjustment of the mAs and/or kVp according to patient size and/or exam, and an iterative reconstruction algorithm. COMPARISON: None. HISTORY: ORDERING SYSTEM PROVIDED HISTORY: Reason for Exam: Headache FINDINGS: There is no acute intracranial hemorrhage, mass effect or abnormal extra-axial fluid collection. There is no CT evidence of acute large territorial infarct. The ventricles are normal in size for age. There is no depressed calvarial fracture. The visualized orbits are grossly unremarkable. The visualized paranasal sinuses are clear. Included mastoid air cells are clear. IMPRESSION: No evidence of an acute intracranial abnormality. Interpreted by: Casimiro Pretty Preliminary Report By: Casimiro Pretty Electronically signed By Casimiro Pretty Dictated Date: 08/16/2023 10:48:56 PM Prelim Date: 08/16/2023 10:51:33 PM Sign Date: 08/16/2023 10:51:33 PM Ordering Provider: AJIT SALAZAR [facility] ([place]) LABORATORYOrdered By: SYSTEM SYSTEM on 12-23-2022 Albumin BCP dye [Mass/Vol] 4.0 G/dL Invalid Interpretation Code 3.5 - 5.0 G/dL AO ADM SS Albumin/Globulin [Mass ratio] 1.2 {ratio} Invalid Interpretation Code 1.1 - 2.5 ratio AO ADM SS ALP [Catalytic activity/Vol] 52 U/L Invalid Interpretation Code 40 - 135 U/L AO ADM SS ALT With P-5'-P [Catalytic activity/Vol] 23 U/L Invalid Interpretation Code 14 - 59 U/L AO ADM SS AST With P-5'-P [Catalytic activity/Vol] 23 U/L Invalid Interpretation Code 10 - 40 U/L AO ADM SS Bilirubin [Mass/Vol] 0.4 mg/dL Invalid Interpretation Code 0.2 - 1.0 mg/dL AO ADM SS Calcium [Mass/Vol] 8.8 mg/dL Invalid Interpretation Code 8.4 - 10.2 mg/dL AO ADM SS Chloride [Moles/Vol] 103 mmol/L Invalid Interpretation Code 98 - 107 mmol/L AO ADM SS CO2 [Moles/Vol] 31 mmol/L Invalid Interpretation Code 22 - 29 mmol/L AO ADM SS Creatinine [Mass/Vol] 0.70 mg/dL Invalid Interpretation Code 0.55 - 1.02 mg/dL AO ADM SS Electrolyte Balance 7.0 mEq/L Invalid Interpretation Code 4.0 - 15.0 mEq/L AO ADM SS GFR 118 ml/min/1.73sqm Invalid Interpretation Code AO Chemistry S GFR Non- 98 ml/min/1.73sqm Invalid Interpretation Code AO Chemistry S Globulin 3.2 G/dL Invalid Interpretation Code AO ADM SS Glucose [Mass/Vol] 82 mg/dL Invalid Interpretation Code 70 - 105 mg/dL AO ADM SS HCG Qn mIU/mL Invalid Interpretation Code AO ADM SS Potassium [Moles/Vol] 4.0 mmol/L Invalid Interpretation Code 3.5 - 5.1 mmol/L AO ADM SS Protein [Mass/Vol] 7.2 G/dL Invalid Interpretation Code 6.4 - 8.2 G/dL AO ADM SS Sodium [Moles/Vol] 141 mmol/L Invalid Interpretation Code 136 - 145 mmol/L AO ADM SS TSH Qn 1.06 m[IU]/L Invalid Interpretation Code 0.36 - 3.74 mcIU/mL AO ADM SS Urea nitrogen [Mass/Vol] 12 mg/dL Invalid Interpretation Code 7 - 18 mg/dL AO ADM SS Urea nitrogen/Creatinine [Mass ratio] 17 ratio Invalid Interpretation Code 7 - 27 ratio AO ADM SS LABORATORYOrdered By: Susan Powers on 12-23-2022 Basophil, Absolute 0.0 103/mcL Invalid Interpretation Code 0.0 - 0.2 10^3/mcL AO Workflow SS Basophils/100 WBC (Bld) 0.6 % Invalid Interpretation Code 0.0 - 2.5 % AO Workflow SS Eosinophil, Absolute 0.2 103/mcL Invalid Interpretation Code 0.0 - 0.4 10^3/mcL AO Workflow SS Eosinophils/100 WBC (Bld) 2.4 % Invalid Interpretation Code 0.0 - 7.0 % AO Workflow SS Erythrocyte distribution width (RBC) [Ratio] 13.1 % Invalid Interpretation Code 11.5 - 14.5 % AO Workflow SS Hematocrit (Bld) [Volume fraction] 38.1 % Invalid Interpretation Code 37.0 - 47.0 % AO Workflow SS Hemoglobin (Bld) [Mass/Vol] 12.9 G/dL Invalid Interpretation Code 12.0 - 16.0 G/dL AO Workflow SS Lymphocyte, Absolute 2.1 103/mcL Invalid Interpretation Code 0.8 - 3.9 10^3/mcL AO Workflow SS Lymphocytes/100 WBC (Bld) 28.9 % Invalid Interpretation Code 10.0 - 50.0 % AO Workflow SS MCH (RBC) [Entitic mass] 29.8 pg Invalid Interpretation Code 27.0 - 31.2 pg AO Workflow SS MCHC 33.7 G/dL Invalid Interpretation Code 33.0 - 37.0 G/dL AO Workflow SS MCV (RBC) [Entitic vol] 88.4 fL Invalid Interpretation Code 80.0 - 94.0 fL AO Workflow SS Monocyte, Absolute 0.6 103/mcL Invalid Interpretation Code 0.2 - 1.0 10^3/mcL AO Workflow SS Monocytes/100 WBC (Bld) 8.0 % Invalid Interpretation Code 1.7 - 13.0 % AO Workflow SS Neutrophil, Absolute 4.3 103/mcL Invalid Interpretation Code 2.9 - 6.2 10^3/mcL AO Workflow SS Neutrophils/100 WBC (Bld) 60.1 % Invalid Interpretation Code 37.0 - 80.0 % AO Workflow SS Platelet mean volume (Bld) [Entitic vol] 8.5 fL Invalid Interpretation Code 7.4 - 10.4 fL AO Workflow SS Platelets (Bld) [#/Vol] 272 103/mcL Invalid Interpretation Code 130 - 400 10^3/mcL AO Workflow SS RBC (Bld) [#/Vol] 4.31 106/mcL Invalid Interpretation Code 4.20 - 5.40 10^6/mcL AO Workflow SS WBC (Bld) [#/Vol] 7.1 103/mcL Invalid Interpretation Code 4.6 - 10.8 10^3/mcL AO Workflow SS LABORATORYOrdered By: Susan Powers on 11-28-2021 Albumin BCP dye [Mass/Vol] 4.1 G/dL Invalid Interpretation Code 3.5 - 5.0 G/dL AO ADM SS Albumin/Globulin [Mass ratio] 1.2 {ratio} Invalid Interpretation Code 1.1 - 2.5 ratio AO ADM SS ALP [Catalytic activity/Vol] 69 U/L Invalid Interpretation Code 40 - 135 U/L AO ADM SS ALT With P-5'-P [Catalytic activity/Vol] 28 U/L Invalid Interpretation Code 14 - 59 U/L AO ADM SS AST With P-5'-P [Catalytic activity/Vol] 20 U/L Invalid Interpretation Code 10 - 40 U/L AO ADM SS Bilirubin [Mass/Vol] 0.5 mg/dL Invalid Interpretation Code 0.2 - 1.0 mg/dL AO ADM SS Calcium [Mass/Vol] 9.4 mg/dL Invalid Interpretation Code 8.4 - 10.2 mg/dL AO ADM SS Chloride [Moles/Vol] 99 mmol/L Invalid Interpretation Code 98 - 107 mmol/L AO ADM SS CO2 [Moles/Vol] 25 mmol/L Invalid Interpretation Code 22 - 29 mmol/L AO ADM SS Creatinine [Mass/Vol] 0.81 mg/dL Invalid Interpretation Code 0.55 - 1.02 mg/dL AO ADM SS CRP [Mass/Vol] 7.8 mg/dL Invalid Interpretation Code 0.0 - 0.9 mg/dL AO ADM SS Electrolyte Balance 11.0 mEq/L Invalid Interpretation Code AO ADM SS Fibrin D-dimer DDU (PPP) [Mass/Vol] 205 ng/mL D-DU Invalid Interpretation Code 0 - 230 ng/mL D-DU AO Coag SS Globulin 3.5 G/dL Invalid Interpretation Code AO ADM SS Glucose [Mass/Vol] 107 mg/dL Invalid Interpretation Code 70 - 105 mg/dL AO ADM SS Potassium [Moles/Vol] 4.0 mmol/L Invalid Interpretation Code 3.5 - 5.1 mmol/L AO ADM SS Protein [Mass/Vol] 7.6 G/dL Invalid Interpretation Code 6.4 - 8.2 G/dL AO ADM SS Sodium [Moles/Vol] 135 mmol/L Invalid Interpretation Code 136 - 145 mmol/L AO ADM SS Urea nitrogen [Mass/Vol] 15 mg/dL Invalid Interpretation Code 7 - 18 mg/dL AO ADM SS Urea nitrogen/Creatinine [Mass ratio] 19 ratio Invalid Interpretation Code 7 - 27 ratio AO ADM SS LABORATORYOrdered By: Jacqueline Her on 11-28-2021 Band form neutrophils (Bld) [#/Vol] 1.0 10*3/uL Invalid Interpretation Code 0.0 - 5.0 % AO Auto Heme SS Basophil %, Manual 0.0 1 Invalid Interpretation Code 0.0 - 2.5 % AO Auto Heme SS Basophil, Absolute 0.10 103/mcL Invalid Interpretation Code 0.00 - 0.19 10^3/mcL AO Auto Heme SS Basophils/100 WBC (Bld) 0.4 % Invalid Interpretation Code 0.0 - 2.5 % AO Auto Heme SS Eosinophil %, Manual 0.0 1 Invalid Interpretation Code 0.0 - 7.0 % AO Auto Heme SS Eosinophil, Absolute 0.10 103/mcL Invalid Interpretation Code 0.00 - 0.40 10^3/mcL AO Auto Heme SS Eosinophils/100 WBC (Bld) 0.2 % Invalid Interpretation Code 0.0 - 7.0 % AO Auto Heme SS Lymphocyte %, Manual 16.0 1 Invalid Interpretation Code 10.0 - 50.0 % AO Auto Heme SS Lymphocyte, Absolute 2.50 103/mcL Invalid Interpretation Code 0.77 - 3.85 10^3/mcL AO Auto Heme SS Lymphocytes/100 WBC (Bld) 11.5 % Invalid Interpretation Code 10.0 - 50.0 % AO Auto Heme SS Monocyte %, Manual 6.0 1 Invalid Interpretation Code 1.7 - 13.0 % AO Auto Heme SS Monocyte, Absolute 1.50 103/mcL Invalid Interpretation Code 0.15 - 1.00 10^3/mcL AO Auto Heme SS Monocytes/100 WBC (Bld) 6.9 % Invalid Interpretation Code 1.7 - 13.0 % AO Auto Heme SS Neutrophil %, Manual 76.0 1 Invalid Interpretation Code 37.0 - 80.0 % AO Auto Heme SS Neutrophil, Absolute 18.00 103/mcL Invalid Interpretation Code 2.85 - 6.16 10^3/mcL AO Auto Heme SS Neutrophils/100 WBC (Bld) 81.0 % Invalid Interpretation Code 37.0 - 80.0 % AO Auto Heme SS Platelet Estimate Normal (11/28/21 1:08 PM) Invalid Interpretation Code AO Auto Heme SS RBC morphology finding Nom (Bld) Normal (11/28/21 1:08 PM) Invalid Interpretation Code AO Auto Heme SS LABORATORYOrdered By: Laya Alberts on 11-28-2021 Erythrocyte distribution width (RBC) [Ratio] 13.4 % Invalid Interpretation Code 11.5 - 14.5 % AO Auto Heme SS Hematocrit (Bld) [Volume fraction] 39.6 % Invalid Interpretation Code 37.0 - 47.0 % AO Auto Heme SS Hemoglobin (Bld) [Mass/Vol] 13.3 G/dL Invalid Interpretation Code 12.0 - 16.0 G/dL AO Auto Heme SS MCH (RBC) [Entitic mass] 29.2 pg Invalid Interpretation Code 27.0 - 31.2 pg AO Auto Heme SS MCHC (RBC) [Mass/Vol] 33.6 G/dL Invalid Interpretation Code 33.0 - 37.0 G/dL AO Auto Heme SS MCV (RBC) [Entitic vol] 87.0 fL Invalid Interpretation Code 80.0 - 94.0 fL AO Auto Heme SS Platelet mean volume (Bld) [Entitic vol] 8.1 fL Invalid Interpretation Code 7.4 - 10.4 fL AO Auto Heme SS Platelets (Bld) [#/Vol] 351 103/mcL Invalid Interpretation Code 130 - 400 10^3/mcL AO Auto Heme SS RBC (Bld) [#/Vol] 4.55 106/mcL Invalid Interpretation Code 4.20 - 5.40 10^6/mcL AO Auto Heme SS WBC (Bld) [#/Vol] 22.30 103/mcL Invalid Interpretation Code 4.60 - 10.80 10^3/mcL AO Auto Heme SS LABORATORYOrdered By: SYSTEM SYSTEM on 11-28-2021 GFR 101 ml/min/1.73sqm Invalid Interpretation Code AO Chemistry S GFR Non- 83 ml/min/1.73sqm Invalid Interpretation Code AO Chemistry S CNOVon 11-11-2021 CNOV Office Visit ([facility]) ---- AMANDA JAMES ([id number]) 1990 F Date Time Provider Department 11/11/21 11:15 AM [facility] During your visit today, we recorded the following information about you: Temperature Pulse Respiration Blood pressure 97.9 degrees 81/minute 16/minute 126/82 Weight 59.7 kg Mary Gamez APRN.LEAD DATA ENTRY OPERATOR 11/11/2021 2:03 PM Addendum Subjective HPI Nontoxic-appearing female presents urgent care chief complaint left foot and ankle pain. Duration of symptoms 24 hours. Associated symptoms left ankle pain, foot pain, swelling and bruising. Patient states she was at a trampoline park yesterday when she jumped landing wrong injuring her left ankle. Patient states is unable to bear weight with ambulation. Denies any OTC medication use. Has been using crutches this has helped with discomfort. Denies any history of foot ankle surgery or trauma. Denies any numbness no tingling no decreased sensation. Denies any other injuries. No head no neck no back pain no LOC. Denies chance of is not breast-feeding past medical history prescription medication use allergies reviewed. .Patient presents with: Pain (foot): L foot pain x1 day PAST MEDICAL HISTORY Diagnosis Date - Anxiety and depression PAST SURGICAL HISTORY Procedure Laterality Date - RECONSTR NOSE Rhinoplasty - REMOVAL ADENOIDS,PRIMARY,<1 3 Y/O Adenoidectomy - REMOVAL OF TONSILS,<12 Y/O Tonsillectomy ALLERGIES Morphine MEDICATIONS methadone (DOLOPHINE) 10 mg tablet Take 20 mg by mouth once daily. FAMILY HISTORY Problem Relation Age of Onset - Diabetes Maternal Grandmother - Cancer Maternal Grandfather - Hypertension Mother - other (hypoglycemia [Other]) Mother Social History Tobacco Use - Smoking status: Former Smoker - Smokeless tobacco: Never Used Substance Use Topics - Alcohol use: No Comment: occasional - Drug use: No BP 126/82 Pulse 81 Temp 36.6 ?C (97.9 ?F) Resp 16 Wt 59.7 kg (131 lb 9.6 oz) LMP 06/07/2015 (Exact Date) SpO2 96% BMI 23.88 kg/m? Review of Systems Constitutional: Negative for chills, fever and malaise/fatigue. HENT: Negative for congestion, ear discharge, ear pain, sinus pain and sore throat. Eyes: Negative for blurred vision, pain, discharge and redness. Respiratory: Negative for cough, hemoptysis, sputum production, shortness of breath, wheezing and stridor. Cardiovascular: Negative for chest pain. Gastrointestinal: Negative for abdominal pain, diarrhea, nausea and vomiting. Musculoskeletal: Positive for falls and joint pain. Negative for back pain, myalgias and neck pain. Skin: Negative for itching and rash. Neurological: Negative for dizziness and headaches. Objective Physical Exam Constitutional: General: She is not in acute distress. Appearance: She is not diaphoretic. HENT: Head: Normocephalic. Mouth/Throat: Mouth: Mucous membranes are moist. Pharynx: Oropharynx is clear. No oropharyngeal exudate or posterior oropharyngeal erythema. Eyes: Conjunctiva/sclera: Conjunctivae normal. Pupils: Pupils are equal, round, and reactive to light. Cardiovascular: Rate and Rhythm: Normal rate and regular rhythm. Heart sounds: Normal heart sounds. Pulmonary: Effort: Pulmonary effort is normal. No tachypnea, accessory muscle usage or respiratory distress. Breath sounds: Normal breath sounds. No stridor. Abdominal: Palpations: Abdomen is soft. Tenderness: There is no abdominal tenderness. Musculoskeletal: Cervical back: Normal range of motion and neck supple. No rigidity or tenderness. Left ankle: Swelling and ecchymosis present. No deformity or lacerations. Tenderness present over the lateral malleolus. Decreased range of motion. Left Achilles Tendon: Normal. Left foot: Decreased range of motion. Normal capillary refill. Swelling, tenderness and bony tenderness present. No deformity or laceration. Normal pulse. Feet: Feet: Comments: Point tenderness with palpation. Ecchymosis bruising noted. No breaks in skin. Neurovascular intact. Lymphadenopathy: Cervical: No cervical adenopathy. Skin: General: Skin is warm and dry. Neurological: Mental Status: She is alert and oriented to person, place, and time. ASSESSMENT/PLAN: 1. Injury of left foot, initial encounter - ICD9: 959.7, ICD10: S99.922A (primary diagnosis) - XR FOOT GENERAL 3V AP/LAT/OBL LEFT 2. Acute left ankle pain - ICD9: 719.47, ICD10: M25.572 - XR ANKLE GENERAL 3V AP/LAT/OBL LEFT 3. Closed displaced fracture of navicular bone of left foot, initial encounter - ICD9: 825.22, ICD10: S92.252A - CONSULT TO PODIATRY IMPRESSION: Navicular fracture. Patient placed in Ortho boot. Podiatry referral placed. Follow-up with podiatry within a week. Patient will use crutches. Will treat as nonweightbearing injury till follows up with podiatry. Jayme (more content not included)... [facility] Kumar 11-11-2021 CNPN Telephone (UCWSTR) ---- AMANDA JAMES ([id number]) 1990 F Date Time Provider Department 11/11/21 MARY GAMEZ TAB During your visit today, we recorded the following information about you: Inez Rodríguez RN 11/11/2021 1:56 PM Signed Patient calls and states that she wanted provider to know that she did set up an appointment with Dr. Edwin Howell for Thursday. Patient states that she is going to need to bring a hard copy of x ray results to appointment. Asking provider how to do this? Please review and advise, JC Qureshi MD 11/11/2021 2:04 PM Signed Please contact patient with details for obtaining a copy of her xrays. Jayne Montana, POLINA 11/12/2021 8:46 AM Signed CD/reports READY FOR BENEFIT DIRECTOR AT [facility] Allergies As of Date: 11/11/2021 Noted Allergy Reaction MORPHINE 02/04/2013 4 - Hives Date Reviewed: 11/11/2021 Reviewed by: Mary Gamez APRN.[facility] - Fully Assessed Reason for Visit: Patient Update [1234] Cmt: xray disk Prescriptions as of 11/20/2021 - methadone (DOLOPHINE) 10 mg tablet Take 20 mg by mouth once daily. Problem List As Of Date: 11/11/2021 (None) Encounter Status:Closed by INEZ RODRÍGUEZ on 11/20/21 [facility] ANGELAN Telephone (XRI) ---- ERIKAAMANDA ([id number]) 1990 F Date Time Provider Department 11/11/21 SELF XRI During your visit today, we recorded the following information about you: Sho Lorrie Pss 11/11/2021 2:22 PM Signed Patient is calling in today to request a CD of her imaging done at urgent care on 11-11-21 for a follow up appointment that is scheduled for 11-13-21. Patient would like to pick this up tomorrow morning if at all possible. If patient can not flower buncher or picker on 11-12-21 please let patient know. Thank you ! Sho Andrew [facility] Jayne Montana, [facility] 11/12/2021 8:46 AM Signed CD READY FOR BENEFIT DIRECTOR AT [facility] Allergies As of Date: 11/11/2021 Noted Allergy Reaction MORPHINE 02/04/2013 4 - Hives Date Reviewed: 11/11/2021 Reviewed by: Mary Gamez APRN.LEAD DATA ENTRY OPERATOR - Fully Assessed Reason for Visit: Patient Request [[id number]] Prescriptions as of 11/12/2021 - methadone (DOLOPHINE) 10 mg tablet Take 20 mg by mouth once daily. Problem List As Of Date: 11/11/2021 (None) Encounter Status:Closed by LORRIE FISHGIGISHO on 11/11/21 [facility] No Panel Informationon 11-11 IMPRESSION: Navicular fracture. New Accounts Clerk: JACQUELINE Transcribe Date/Time: Nov 11 2021 12:04P Dictated by : KWAKU NEGRON MD This examination was interpreted and the report reviewed and electronically signed by: KWAKU NEGRON MD on Nov 11 2021 12:10PM [facility] DIVISION OF RADIOLOGY Radiology Study observation (narrative) [facility] No Panel InformationOrdered By: Ccf Provider on 11-11-2021 [facility] XR ANKLE 3V AP/LAT/OBL LTon 11-11-2021 XR ANKLE 3V AP/LAT/OBL LT * * *Final Report* * * DATE OF EXAM: Nov 11 2021 11:44AM WOX 5298 - XR ANKLE 3V AP/LAT/OBL LT / PROCEDURE REASON: Acute left ankle pain * * * * Physician Interpretation * * * * EXAM TITLE: XR ANKLE 3V AP/LAT/OBL LT, XR FOOT 3V AP/LAT/OBL LT EXAM DATE/TIME: 11/11/2021 11:44 AM COMPARISON: None. CLINICAL INDICATION/HISTORY: Acute ankle pain. Injury of left foot. TECHNIQUE: AP, mortise and lateral views of the left ankle are presented. AP, oblique and lateral views of the left foot are also present. FINDINGS: Mildly displaced navicular fracture is noted, better visualized on lateral view. The joint spaces including the mortise spaces are well preserved. There is no ankle joint effusion. The mineralization of the bones is normal. There is no significant soft tissue swelling. IMPRESSION: Navicular fracture. New Accounts Clerk: PSCB Transcribe Date/Time: Nov 11 2021 12:04P Dictated by : KWAKU NEGRON MD This examination was interpreted and the report reviewed and electronically signed by: KWAKU NEGRON MD on Nov 11 2021 12:10PM EST [id number] [facility] XR Ankle - left AP and Later al and obliqueon 11-11-2021 * * *Final Report* * * DATE OF EXAM: Nov 11 2021 11:44AM WOX 5298 - XR ANKLE 3V AP/LAT/OBL LT / PROCEDURE REASON: Acute left ankle pain * * * * Physician Interpretation * * * * EXAM TITLE: XR ANKLE 3V AP/LAT/OBL LT, XR FOOT 3V AP/LAT/OBL LT EXAM DATE/TIME: 11/11/2021 11:44 AM COMPARISON: None. CLINICAL INDICATION/HISTORY: Acute ankle pain. Injury of left foot. TECHNIQUE: AP, mortise and lateral views of the left ankle are presented. AP, oblique and lateral views of the left foot are also present. FINDINGS: Mildly displaced navicular fracture is noted, better visualized on lateral view. The joint spaces including the mortise spaces are well preserved. There is no ankle joint effusion. The mineralization of the bones is normal. There is no significant soft tissue swelling. DIVISION OF RADIOLOGY Provider, [facility] [place] - 11/11/2021 * * *Final Report* * * DATE OF EXAM: Nov 11 2021 11:44AM WOX 5298 - XR ANKLE 3V AP/LAT/OBL LT / PROCEDURE REASON: Acute left ankle pain * * * * Physician Interpretation * * * * EXAM TITLE: XR ANKLE 3V AP/LAT/OBL LT, XR FOOT 3V AP/LAT/OBL LT EXAM DATE/TIME: 11/11/2021 11:44 AM COMPARISON: None. CLINICAL INDICATION/HISTORY: Acute ankle pain. Injury of left foot. TECHNIQUE: AP, mortise and lateral views of the left ankle are presented. AP, oblique and lateral views of the left foot are also present. FINDINGS: Mildly displaced navicular fracture is noted, better visualized on lateral view. The joint spaces including the mortise spaces are well preserved. There is no ankle joint effusion. The mineralization of the bones is normal. There is no significant soft tissue swelling. IMPRESSION IMPRESSION: Navicular fracture. New Accounts Clerk: JACQUELINE Transcribe Date/Time: Nov 11 2021 12:04P Dictated by : KWAKU NEGRON MD This examination was interpreted and the report reviewed and electronically signed by: KWAKU NEGRON MD on Nov 11 2021 12:10PM [facility] XR FOOT 3V AP/LAT/OBL LTon 1 01-12-2021 XR FOOT 3V AP/LAT/OBL LT * * *Final Report* * * DATE OF EXAM: Nov 11 2021 11:44AM WOX 5336 - XR FOOT 3V AP/LAT/OBL LT / PROCEDURE REASON: Injury of left foot, initial encounter * * * * Physician Interpretation * * * * EXAM TITLE: XR ANKLE 3V AP/LAT/OBL LT, XR FOOT 3V AP/LAT/OBL LT EXAM DATE/TIME: 11/11/2021 11:44 AM COMPARISON: None. CLINICAL INDICATION/HISTORY: Acute ankle pain. Injury of left foot. TECHNIQUE: AP, mortise and lateral views of the left ankle are presented. AP, oblique and lateral views of the left foot are also present. FINDINGS: Mildly displaced navicular fracture is noted, better visualized on lateral view. The joint spaces including the mortise spaces are well preserved. There is no ankle joint effusion. The mineralization of the bones is normal. There is no significant soft tissue swelling. IMPRESSION: Navicular fracture. New Accounts Clerk: JACQUELINE Transcribe Date/Time: Nov 11 2021 12:04P Dictated by : KWAKU NEGRON MD This examination was interpreted and the report reviewed and electronically signed by: KWAKU NEGRON MD on Nov 11 2021 12:10PM EST [id number] [facility] XR Foot - left AP and Latera l and obliqueon 11-11-2021 * * *Final Report* * * DATE OF EXAM: Nov 11 2021 11:44AM WOX 5336 - XR FOOT 3V AP/LAT/OBL LT / PROCEDURE REASON: Injury of left foot, initial encounter * * * * Physician Interpretation * * * * EXAM TITLE: XR ANKLE 3V AP/LAT/OBL LT, XR FOOT 3V AP/LAT/OBL LT EXAM DATE/TIME: 11/11/2021 11:44 AM COMPARISON: None. CLINICAL INDICATION/HISTORY: Acute ankle pain. Injury of left foot. TECHNIQUE: AP, mortise and lateral views of the left ankle are presented. AP, oblique and lateral views of the left foot are also present. FINDINGS: Mildly displaced navicular fracture is noted, better visualized on lateral view. The joint spaces including the mortise spaces are well preserved. There is no ankle joint effusion. The mineralization of the bones is normal. There is no significant soft tissue swelling. DIVISION OF RADIOLOGY Provider, [facility] - 11/11/2021 * * *Final Report* * * DATE OF EXAM: Nov 11 2021 11:44AM WOX 5336 - XR FOOT 3V AP/LAT/OBL LT / PROCEDURE REASON: Injury of left foot, initial encounter * * * * Physician Interpretation * * * * EXAM TITLE: XR ANKLE 3V AP/LAT/OBL LT, XR FOOT 3V AP/LAT/OBL LT EXAM DATE/TIME: 11/11/2021 11:44 AM COMPARISON: None. CLINICAL INDICATION/HISTORY: Acute ankle pain. Injury of left foot. TECHNIQUE: AP, mortise and lateral views of the left ankle are presented. AP, oblique and lateral views of the left foot are also present. FINDINGS: Mildly displaced navicular fracture is noted, better visualized on lateral view. The joint spaces including the mortise spaces are well preserved. There is no ankle joint effusion. The mineralization of the bones is normal. There is no significant soft tissue swelling. IMPRESSION IMPRESSION: Navicular fracture. New Accounts Clerk: JACQUELINE Transcribe Date/Time: Nov 11 2021 12:04P Dictated by : KWAKU NEGRON MD This examination was interpreted and the report reviewed and electronically signed by: KWAKU NEGRON MD on Nov 11 2021 12:10PM [facility] 08-17-2021 C[facility] Telephone [facility] ---- AMANDA JAMES ([id number]) 1990 F Date Time Provider Department 08/17/21 MIROSLAVA [facility] During your visit today, we recorded the following information about you: Miroslava Horton APRN.[facility] 08/17/2021 12:29 PM Signed Please inform patient that urine culture did not show any growth of bacteria requiring treatment. She can stop the antibioitc Advise due to blood in the urine that she follow up with PCP for recheck of urine in 1-2 weeks. Indiana Renee 08/17/2021 12:43 PM Signed Patient given results and verbalized understanding of instructions given. Indiana Renee Allergies As of Date: 08/17/2021 Noted Allergy Reaction MORPHINE 02/04/2013 4 - Hives Date Reviewed: 08/15/2021 Reviewed by: Indiana Renee - Fully Assessed Reason for Visit: Results [95] Cmt: urine culture Prescriptions as of 08/17/2021 - methadone (DOLOPHINE) 10 mg tablet Take 20 mg by mouth once daily. - sulfamethoxazole-tr imethoprim (BACTRIM DS) 800-160 mg per tablet Take 1 tablet by mouth twice daily for 5 days. Problem List As Of Date: 08/17/2021 (None) Encounter Status:Closed by INDIA[place] RENEE on 08/17/21 [facility] CNOVon 08-15-2021 CNOV [facility] ---- AMANDA JAMES ([id number]) 1990 F Date Time Provider Department 08/15/21 8:15 AM GLORIA ISLASWSTR During your visit today, we recorded the following information about you: Temperature Pulse Respiration Blood pressure 100.7 degrees 100/minute 18/minute 120/72 Weight 59.4 kg Gloria Islas PA-C 08/15/2021 10:33 AM Signed This note was created using Propers. Subjective Amanda James is a 31 year old female. HPI Patient presents with headache, fever and body aches over the past day. She has had a sore throat but that has improved. Denies a cough. She has had some urinary frequency and urgency as well. No abdominal pain or back pain. No blood in her urine. She does currently have a ParaGard IUD. She is not sexually active. No vaginal discharge. She states multiple family members have URI symptoms right now but have not been tested for Covid. No abdominal pain or vomiting. Review of Systems Constitutional: Positive for chills, fatigue and fever. HENT: Positive for sore throat. Negative for congestion and rhinorrhea. Respiratory: Negative for cough. Cardiovascular: Negative. Gastrointestinal: Negative for abdominal pain, constipation, diarrhea, nausea and vomiting. Genitourinary: Positive for frequency and urgency. Negative for dysuria and hematuria. Musculoskeletal: Negative for back pain and myalgias. All other systems reviewed and are negative. PAST MEDICAL HISTORY Diagnosis Date - Anxiety and depression Current Outpatient Medications Medication Sig Dispense Refill - methadone (DOLOPHINE) 10 mg tablet Take 20 mg by mouth once daily. - sulfamethoxazole-tr imethoprim (BACTRIM DS) 800-160 mg per tablet Take 1 tablet by mouth twice daily for 5 days. 10 tablet 0 No current facility-administer ed medications for this visit. PAST SURGICAL HISTORY Procedure Laterality Date - RECONSTR NOSE Rhinoplasty - REMOVAL ADENOIDS,PRIMARY,<1 2 Y/O Adenoidectomy - REMOVAL OF TONSILS,<12 Y/O Tonsillectomy FAMILY HISTORY Problem Relation Age of Onset - Diabetes Maternal Grandmother - Cancer Maternal Grandfather - Hypertension Mother - other (hypoglycemia [Other]) Mother Social History Tobacco Use - Smoking status: Former Smoker - Smokeless tobacco: Never Used Substance Use Topics - Alcohol use: No Comment: occasional - Drug use: No Objective BP 120/72 Pulse 100 Temp (!) 38.2 ?C (100.7 ?F) Resp 18 Wt 59.4 kg (131 lb) LMP 06/07/2015 (Exact Date) SpO2 97% BMI 23.77 kg/m? Physical Exam Vitals reviewed. Constitutional: Appearance: Normal appearance. HENT: Head: Normocephalic and atraumatic. Right Ear: Tympanic membrane, ear canal and external ear normal. Left Ear: Tympanic membrane, ear canal and external ear normal. Nose: Congestion present. Mouth/Throat: Mouth: Mucous membranes are moist. Pharynx: Oropharynx is clear. Cardiovascular: Rate and Rhythm: Normal rate and regular rhythm. Heart sounds: Normal heart sounds. Pulmonary: Effort: Pulmonary effort is normal. Breath sounds: Normal breath sounds. Abdominal: General: Abdomen is flat. Palpations: Abdomen is soft. Tenderness: There is no abdominal tenderness. There is no right CVA tenderness, left CVA tenderness or guarding. Musculoskeletal: Cervical back: Neck supple. Lymphadenopathy: Cervical: No cervical adenopathy. Skin: General: Skin is warm and dry. Findings: No rash. Neurological: General: No focal deficit present. Mental Status: She is alert and oriented to person, place, and time. Assessment and Plan ASSESSMENT/PLAN: 1. Fever, unspecified fever cause - ICD9: 780.60, ICD10: R50.9 Likely viral illness, covid19 testing pending. Her urine did have small blood and she is having some symptoms of uti so I will start her on bactrim. Can d/c if culture negative. Red flags. - UA DIP, URINE (POC) - 2019 CORONAVIRUS - URINE CULTURE Gloria Islas PA-C Referring Provider: SELF [200] Allergies As of Date: 08/15/2021 Noted Allergy Reaction MORPHINE 02/04/2013 4 - Hives Date Reviewed: 08/15/2021 Reviewed by: Indiana Renee - Fully Assessed Reason for Visit: Headache [52] Cmt: fever, bodyaches x 1 day Primary Visit Diagnosis:Fever, unspecified fever cause [R50.9] Order(s):UA DIP, URINE (POC) [0556750] Order #: [id number]. #:[id number] 2019 CORONAVIRUS [SQCOVID] Order #: [id number] FUTURE sulfamethoxazole-tr imethoprim (BACTRIM DS) 800-160 mg per tabletTake 1 tablet by mouth twice daily for 5 days.Disp: 10 tabletRfl: 0 URINE CULTURE [SQURCUL] Order #: [id number] Prescriptions as of 08/15/2021 - methadone (DOLOPHINE) 10 mg tablet Take 20 mg by mouth once daily. - sulfamethoxazole-tr imethoprim (BACTRIM DS) 800-160 mg per tablet Take 1 tablet by mouth twice daily for 5 days. Problem List As Of Date: 08/15/2021 ( (more content not included)... [facility] Coronavirus 2019on 1 SARS-CoV-2 (COVID-19) RNA NATANAEL+probe Ql (Unsp spec) UPPER RESPIRATORY TRACT SWAB [facility] Comment on above: Performed By: #### C OVID #### [place] [address] [place] [id number] SARS-CoV-2 (COVID-19) RNA NATANAEL+probe Ql (Unsp spec) Positive for COVID19 (SARS CoV2) by RT-PCR or equivalent method. Critically abnormal Negative for COVID19 (SARS CoV2) by RT-PCR or equivalent method. [facility] Comment on above: Result Comment: This test was developed and its performance characteristics determined by [facility] [place]. This test has been authorized by FDA under an Emergency Use Authorization (EUA). This test has been validated in accordance with the FDA's Guidance Document Policy for Diagnostics Testing in Laboratories Certified to Perform High Complexity Testing under CLIA prior to Emergency use Authorization for Coronavirus Disease 2019 during the Public Health Emergency issued on January 28, 2020. Test performed by [facility], [facility] [place], [address], [place] [address]. Performed By: #### C OVID #### [facility] [address] [place], [place] [address] Urine Cultureon 08-15-2021 Bacteria identified Cx Nom (U) Sp. Request/Comment: - Specimen received in preservative Culture Result - <10,000 CFU/ml Three or more organisms, no one type predominant, suggesting contamination during collection. Recollect if clinically indicated. [facility] Comment on above: Performed By: #### U RCUL #### [facility] [address] [place] [address] [address] Vital Signs Date Time Vital Sign Value Performing Clinician Faci lity 08-16-2023 21:43-[address] Cuff Size DR AJIT SALAZAR MD [facility] 08-16-2023 21:43-[address] AJIT SALZAAR MD [facility] 08-16-2023 21:43-[address] AJIT SALAZAR MD [facility] 08-16-2023 21:43-0400 Body temperature 99.32 [degF] DR AJIT SALAZAR MD [facility] 08-16-2023 21:43-0400 Diastolic Blood Pressure Non-Invasive [address] AJIT SALAZAR MD [facility] 08-16-2023 21:43-0400 Heart rate 73 /min DR AJIT SALAZAR MD [facility] 08-16-2023 21:43-0400 Respiratory rate 18 /min DR AJIT SALAZAR MD [facility] 08-16-2023 21:43-0400 Systolic Blood Pressure Non-Invasive [address] AJIT SALAZAR MD [facility] Encounters Encounter Date Encounter Type Care Provider Facility Start: 04-20-2024 End: 04-21-2024 ambulatory RYAN Salvador MASSIMO ELECTRIC APPLIANCE INSTALLER-LEAD DATA ENTRY OPERATOR Facility:B Start: 04-20-2024 End: 04-20-2024 Patient encounter procedure RYAN Salvador MASSIMO ELECTRIC APPLIANCE INSTALLER-LEAD DATA ENTRY OPERATOR [facility] Start: 08-26-2023 End: 08-27-2023 ambulatory EHSAN LYNN ELECTRIC APPLIANCE INSTALLER - LEAD DATA ENTRY OPERATOR Facility:[facility] Start: 08-26-2023 End: 08-26-2023 Patient encounter procedure SACHIN MOYA ELECTRIC APPLIANCE INSTALLER-LEAD DATA ENTRY OPERATOR [facility] Start: 08-16-2023 End: 08-17-2023 Emergency department patient visit EHSAN LYNN ELECTRIC APPLIANCE INSTALLER - LEAD DATA ENTRY OPERATOR Facility:[facility] Start: 08-16-2023 End: 08-16-2023 Emergency department patient visit DR AJIT SALAZAR MD [facility] Start: 12-23-2022 End: 12-23-2022 Patient encounter procedure HARPREET MCCOY DO [facility] Start: 12-16-2021 End: 12-16-2021 Patient encounter procedure EHSAN LYNN ELECTRIC APPLIANCE INSTALLER - LEAD DATA ENTRY OPERATOR [facility] Start: 11-28-2021 End: 11-28-2021 Patient encounter procedure EHSAN BLANCOKINS ELECTRIC APPLIANCE INSTALLER - LEAD DATA ENTRY OPERATOR [facility] Start: 11-13-2021 End: 11-13-2021 Patient encounter procedure EDWIN HOWELL DPM [facility] Start: 11-11-2021 End: 11-11-2021 Subsequent hospital visit by physician Chidi [facility] [place] Work Phone: Radiology Comment on above: Injury of left foot, initial encounter [J56.185Q] Procedures Date Procedure Procedure Detail Performing Clinician Start: 11-11-2021 Radex ankle complete minimum 3 views Mary Gamez ELECTRIC APPLIANCE INSTALLER.LEAD DATA ENTRY OPERATOR Work Phone: History of tonsillectomy History of tonsillectomy( Confirmed ) EDWIN JOLIE DPM Plan of Treatment Date Care Activity Detail Author Start: 07-31-2024 Covid-19 Vaccine () Covid-19 Vaccine () [facility] Start: 07-31-2024 Influenza vaccination Influenza Vacc ine (#1) [facility] Start: 07-12-2020 Urine microalbumin profile DTa P,Tdap,Td Vaccine (7 - Td or Tdap) [facility] Start: 03-01-2016 Screening for malign ant neoplasm of cervix Cervical Cancer Screening [facility] Start: 08-09-2010 HPV Vaccine (2 - 3-d ose series) HPV Vaccine (2 - 3-dose series) [facility] Start: 2009 Anxiety Screening Anxiety Screening [facility] Start: 2009 Depression Screening Depression Scre ening [facility] Start: 2009 Hepatitis C screening Hepatitis C Sc reening [facility] Start: 2009 HIV screening HIV Screening [facility] Immunizations Immunization Date Immunization Notes Care Provider Julianna dwyer 01-22-2011 hepatitis B pediatri c vaccine RYAN KEYS ELECTRIC APPLIANCE INSTALLER-LEAD DATA ENTRY OPERATOR [facility] 08-12-2010 hepatitis B pediatri c vaccine RYAN KEYS ELECTRIC APPLIANCE INSTALLER-LEAD DATA ENTRY OPERATOR [facility] 07-12-2010 hepatitis B pediatri c vaccine RYAN KEYS ELECTRIC APPLIANCE INSTALLER-LEAD DATA ENTRY OPERATOR [facility] 07-12-2010 Human Papillomavirus Quadval RYAN KEYS ELECTRIC APPLIANCE INSTALLER-LEAD DATA ENTRY OPERATOR [facility] 07-12-2010 meningococcal polysaccharide (groups A, C, Y and W-135) diphtheria toxoid conjugate vaccine (MCV4P) RYAN KEYS ELECTRIC APPLIANCE INSTALLER-LEAD DATA ENTRY OPERATOR [facility] 07-12-2010 tetanus toxoid, redu lay diphtheria toxoid, and acellular pertussis vaccine, adsorbed RYAN KEYS ELECTRIC APPLIANCE INSTALLER-LEAD DATA ENTRY OPERATOR [facility] 05-29-1997 measles/mumps/rubell a virus vaccine RYAN KEYS ELECTRIC APPLIANCE INSTALLER-LEAD DATA ENTRY OPERATOR [facility] 11-01-1992 measles/mumps/rubell a virus vaccine RYAN KEYS ELECTRIC APPLIANCE INSTALLER-LEAD DATA ENTRY OPERATOR [facility] Payers Date Payer Category Payer Unknown [id number] 2021 Medicaid [facility] MEDICAID [id number] 2021-2022 [address] [place] [address] Medicaid [id number] 1990 Unknown [id number] 1990 Unknown [id number] 1990 Unknown [id number] Social History Date Type Detail Facility Start: 06-20-2015 End: 09-27-2020 Ex-smoker (finding) [facility] Sex Assigned At Female [facility] History of tobacco use Current smoker [facility] Start: 06-20-2015 Tobacco use and exposure Smokeless tobacco non-user [facility] Start: 11-11-2021 Alcoholic beverage intake Current non-drinker of alcohol (finding) [facility] Start: 08-15-2021 End: 11-11-2021 History of Social function [facility] Start: 08-15-2021 End: 11-11-2021 Tobacco use panel [facility] National Score (1-100), lower number is lower risk Not on file [facility] Start: 02-04-2013 Alcohol Comment occasional [facility] Start: 1990 Sex assigned at Not on file [facility] Start: 10-12-2021 End: 11-11-2021 Exposure to SARS-CoV-2 (event) Not sure [facility] Functional Status Date Assessment Result Facility 08-16-2023 Functional Status Ambulation in [facility] Mental Status Date Assessment Result Facility 08-16-2023 Mental Status Orientation Oriented x 4 [facility] Clinical Notes 08-15-2021 to 08-17-2023 RadiologyRadiologyRadiologyJaclyn cheema RT(R) - 11/11/2021 11:40 AM EST Note Date & Type Note Facility 08-17-2023 Hospital Discharge instructions Patient Education 08/16/2023 22:57:49 Headache, Unspecified Headache, Unspecified A number of things can cause headaches. The cause of your headache isn t clear. But it doesn t seem to be a sign of any serious illness. Headache affects almost everyone at some time. It is the most common reason people miss days from work or school. You could have a tension headache or a migraine headache. Stress can cause a tension headache. This can happen if you tense the muscles of your shoulders, neck, and scalp without knowing it. If this stress lasts long enough, you may develop a tension headache. It is not clear why migraines occur, but certain things called triggers can raise the risk of having a migraine attack. Migraine triggers may include emotional stress or depression, or by hormone changes during the menstrual cycle. Other triggers include control pills and other medicines, alcohol or caffeine, foods with tyramine (such as aged cheese, wine), eyestrain, weather changes, missed meals, and lack of sleep or oversleeping. Other causes of headache include: Viral illness with high fever Head injury with concussion Sinus, ear, or throat infection Dental pain and jaw joint (TMJ) pain More serious but less common causes of headache include stroke, brain hemorrhage, brain tumor, meningitis, and encephalitis. Home care Follow these tips when taking care of yourself at home: Don t drive yourself home if you were given pain medicine for your headache. Instead, have someone else drive you home. Try to sleep when you get home. You should feel much better when you wake up. Apply heat to the back of your neck to ease a neck muscle spasm. Take care of a migraine headache by putting an ice pack on your forehead or at the base of your skull. If you have nausea or vomiting, eat a light diet until your headache eases. If you have a migraine headache, use sunglasses when in the daylight or around bright indoor lighting until your symptoms get better. Bright glaring light can make this type of headache worse. Follow-up care Follow up with your healthcare provider, or as advised. Talk with your provider if you have frequent headaches. He or she can help figure out a treatment plan. By knowing the earliest signs of headache, and starting treatment right away, you may be able to stop the pain yourself. When to seek medical advice Call your healthcare provider right away if any of these occur: Your head pain suddenly gets worse after sexual intercourse or strenuous activity Your head pain doesn t get better within 24 hours You aren t able to keep liquids down (repeated vomiting) Fever of 100.4 F (38 C) or higher, or as directed by your healthcare provider Stiff neck Extreme drowsiness, confusion, or fainting Dizziness or dizziness with spinning sensation (vertigo) Weakness in an arm or leg or one side of your face You have trouble talking or seeing [id number] [employer]. [address] [place] [address]. All rights reserved. This information is not intended as a substitute for professional medical care. Always follow your healthcare professional's instructions. Follow Up Care 08/16/2023 21:34:47 With:EHSAN LYNN APRN - [facility] Address: [address] [place] [address]- When:2-4 days [facility] 08-16-2023 Note Discharge Instructions Thank you for allowing [facility] to assist you with your healthcare needs. The following is important discharge information regarding your hospital visit. Diagnosis from Today's Visit Headache What to Do Next Instructions from Your Care Team No qualifying data available. Post Acute Orders No qualifying data available. You Need to Schedule the Following Appointments Follow Up with EHSAN LYNN APRN, CNP When Within 2-4 days Where: [address] [place], [place] [id number]- Allergies Morphine Sulfate Medications Please ask your primary doctor or pharmacist before taking any other medication not listed, including over the counter drugs, herbal medications, vitamins and or supplements as they may interact with your home medications. What How Much When Instructions Last Dose New APAP/ butalbital/ caffeine (APAP/ butalbital/ caffeine 325-50-40 mg oral tablet (Fioricet)) 1 tab(s) by mouth Every 4 hours as needed for as needed Duration: 3 Days Printed Prescription Please take this list to your next doctor s visit. Bring all medications you take, including over the counter medications, herbals and other supplements with you to your doctor s visit. Patients and families are reminded to discard old lists and to update any records with all medication providers or retail pharmacies. Education Materials Headache, Unspecified A number of things can cause headaches. The cause of your headache isn t clear. But it doesn t seem to be a sign of any serious illness. Headache affects almost everyone at some time. It is the most common reason people miss days from work or school. You could have a tension headache or a migraine headache. Stress can cause a tension headache. This can happen if you tense the muscles of your shoulders, neck, and scalp without knowing it. If this stress lasts long enough, you may develop a tension headache. It is not clear why migraines occur, but certain things called triggers can raise the risk of having a migraine attack. Migraine triggers may include emotional stress or depression, or by hormone changes during the menstrual cycle. Other triggers include control pills and other medicines, alcohol or caffeine, foods with tyramine (such as aged cheese, wine), eyestrain, weather changes, missed meals, and lack of sleep or oversleeping. Other causes of headache include: Viral illness with high fever Head injury with concussion Sinus, ear, or throat infection Dental pain and jaw joint (TMJ) pain More serious but less common causes of headache include stroke, brain hemorrhage, brain tumor, meningitis, and encephalitis. Home care Follow these tips when taking care of yourself at home: Don t drive yourself home if you were given pain medicine for your headache. Instead, have someone else drive you home. Try to sleep when you get home. You should feel much better when you wake up. Apply heat to the back of your neck to ease a neck muscle spasm. Take care of a migraine headache by putting an ice pack on your forehead or at the base of your skull. If you have nausea or vomiting, eat a light diet until your headache eases. If you have a migraine headache, use sunglasses when in the daylight or around bright indoor lighting until your symptoms get better. Bright glaring light can make this type of headache worse. Follow-up care Follow up with your healthcare provider, or as advised. Talk with your provider if you have frequent headaches. He or she can help figure out a treatment plan. By knowing the earliest signs of headache, and starting treatment right away, you may be able to stop the pain yourself. When to seek medical advice Call your healthcare provider right away if any of these occur: Your head pain suddenly gets worse after sexual intercourse or strenuous activity Your head pain doesn t get better within 24 hours You aren t able to keep liquids down (repeated vomiting) Fever of 100.4 F (38 C) or higher, or as directed by your healthcare provider Stiff neck Extreme drowsiness, confusion, or fainting Dizziness or dizziness with spinning sensation (vertigo) Weakness in an arm or leg or one side of your face You have trouble talking or seeing [phone] [employer]. [address] [facility], [place] [address]. All rights reserved. This information is not intended as a substitute for professional medical care. Always follow your healthcare professional's instructions. Additional Information VACCINATE! IT SAVES LIVES! Members of the community who have not yet received the COVID-19 vaccine and would like to receive it can visit one of [facility] vaccine clinics. There are many vaccine clinic locations within the [facility]. For locations and available times, please visit www.gettheshot.coronavirus.[place].gov/. It is important to note that some COVID mobile vaccine clinics are held outdoors and may be canceled in rainy or stormy conditions. To learn more about pediatric vaccinations (ages 5-11), we invite you to visit the [facility] webpage. https://www.[employer]/Protects.org/pages/2019 -Kihaa-Wqmoqfcjcgg-Vuxqwhohum-Asked-Quest ions.html To learn more about the COVID-19 vaccine, we invite you to visit the CDC website for a list of frequently asked questions. https://www.cdc.gov/coronavirus/2019-ncov /vaccines/faq.html [facility] Patient Portal Access Instructions: Stay connected with your healthcare team and access your personal medical information anytime with the [facility] Patient Portal. If you would like a full copy of your medical records please contact the [facility] Medical Records Department Thursday through Thursday between 8a.m. and 4:30p.m. Please follow the directions below to access the portal: 1.Access the email account you provided upon registration to the hospital.2.Look for an invitation email from [facility].3.Open the email and access the invitation link: Accept Invitation to [facility]4.Fill in the required michael to create your account. Sign into www.[employer] with your username and password that you created in the above steps to stay up to date. You can then view a summary of results, a summary of your visits, and the ability to download your summaries to your computer or send the information securely to a physician. Remember that your healthcare information is confidential, so carefully consider who you will allow to register on the [facility] Patient Portal for access to your information. You can also access the [facility] Patient Portal on the [employer]. Simply click on Health Records under Health Data and then click on the [employer] logo. HOW TO SAFELY DISPOSE OF PRESCRIPTION MEDICATIONS Please use one of the following methods to safely dispose of your unused medications. 1.Use a drug disposal kit: the drug disposal pouch allows you to safely discard your old and unused drugs. Ask your nurse to give you one when you are discharged.2.Visit a local take-back location: Many local pharmacies and police departments have programs that collect old and unwanted prescription drugs. Call your local pharmacy or go to http://[employer].CloudStrategies/3P0Ki6w to find one close to you.3.Make use of household items: Use cat litter or old coffee grounds to dispose medications if other options are not available. Mix your drugs with these household products, seal them in an airtight container and throw it into the garbage. Call [facility]: [phone] to be sure your drugs can be disposed of in this way. Some medicines may require a different approach.4.Never flush your medications down the toilet. IF YOU HAVE BEEN PRESCRIBED AN OPIOIDS FOR PAIN If you have been prescribed an opioid (such as hydrocodone, oxycodone or morphine), it is critical to understand the possible side effects and risks of opioid pain medications. Even when taken as directed, opioids can have several side effects including: Tolerance, meaning you might need to take more of a medication for the same pain relief. Nausea, vomiting and/or constipation. Sleepiness, dizziness, dry mouth, confusion, depression or itching. Physical dependence, meaning you have withdrawal symptoms when a medication is stopped ? this can develop within a few days. KNOW YOUR RESPONSIBILITIES It is important to know exactly how much and how often to take the opioid pain medications you are prescribed. Never take opioids in higher amounts or more often than prescribed. Do not combine opioids with alcohol or other drugs that cause drowsiness, such as benzodiazepines, also known as benzos, including diazepam and alprazolam, muscle relaxants or sleep aids. Never sell or share prescription opioids. This is illegal. Store opioids in a secure place and out of reach of others (including children, family, friends and visitors). The last page(s) of this document has been signed and retained as a CHART COPY Signatures Patient Education Materials Headache, Unspecified Medication Leaflets My discharge plan and instructions have been reviewed and explained to me and IERIKA KEISHA M understand my current condition and have read and understand these discharge instructions. I have received a written copy of the plan/instructions. If I have questions, I am aware that I should contact my doctor. Patient/Neuropsychology Medical Consultant Signature: Date/Time: Relationship to Patient: Witness Name/Signature: ___ Date/Time: [facility] 08-16-2023 Note ORIGINAL EXAMINATION: CT OF THE HEAD WITHOUT CONTRAST08/16/2023 10:[address] HEAD/BRAIN WITHOUT CONTRAST TECHNIQUE: CT of the head was performed without the administration of intravenous contrast. Automated exposure control, iterative reconstruction, and/or weight based adjustment of the mA/kV was utilized to reduce the radiation dose to as low as reasonably achievable. Axial CT images from skull base to vertex without IV contrast. This exam was performed according to our departmental dose optimization program, and includes the following measures where applicable: automated exposure control, adjustment of the mAs and/or kVp according to patient size and/or exam, and an iterative reconstruction algorithm. COMPARISON: None. HISTORY: ORDERING SYSTEM PROVIDED HISTORY: Reason for Exam: Headache FINDINGS: There is no acute intracranial hemorrhage, mass effect or abnormal extra-axial fluid collection. There is no CT evidence of acute large territorial infarct. The ventricles are normal in size for age. There is no depressed calvarial fracture. The visualized orbits are grossly unremarkable. The visualized paranasal sinuses are clear. Included mastoid air cells are clear. IMPRESSION: No evidence of an acute intracranial abnormality. Interpreted by: Casimiro Pretty Preliminary Report By: Casimiro Pretty Electronically signed By Casimiro Pretty Dictated Date: 08/16/2023 10:48:56 PM Prelim Date: 08/16/2023 10:51:33 PM Sign Date: 08/16/2023 10:51:33 PM Ordering Provider: AJIT SALAZAR [facility] 01-28-2023 Evaluation + Plan note Future Scheduled TestsMA Mammo Diagnostic Bilateral w/Jim 01/28/23 [facility] 12-23-2022 Evaluation + Plan note Diagnostic Tests PendingDehydroepiandrosterone Sulfate 12/23/22Prolactin Level 12/23/22Testosterone Level Total 12/23/22Luteinizing Hormone 12/23/22Follicle Stimulating Hormone Level 12/23/22Estradiol Level 12/23/22 [facility] 11-28-2021 Evaluation + Plan note Future Scheduled TestsXR Chest 2 Views (PA & Lateral) 11/28/21 [facility] 11-28-2021 Evaluation + Plan note Diagnostic Tests PendingRespiratory ID Panel with COVID-19 by PCR 11/28/21 Future Scheduled TestsXR Chest 2 Views (PA & Lateral) 11/28/21 [facility] 11-11-2021 Note HNO ID: [id number] Author: RT Amina(R) Service: Radiology Author Type: Technologist Type: Progress Notes Filed: 11/11/2021 11:45 AM Note Text: Radiology Service Progress Note PATIENT NAME: Amanda James DATE OF SERVICE: November 11, 2021 TIME: 11:34 AM PATIENT IDENTITY VERIFICATION COMPLETED USING TWO (2) IDENTIFIERS: Name and Date of confirmed by patient verbally. FALL SCREENING: Has the patient had 2 falls in the last year or 1 fall with injury or currently using an Ambulatory Assistive Device (Walker, Cane, Wheelchair, Crutches, etc.)? No PATIENT GENDER DATA: Female. status: : No status: NO. PATIENT RELEVANT IMPLANT DATA REVIEWED: Yes RADIOLOGY DEPARTMENT: General X-ray: Exam(s) Completed: Lower Extremity X-Ray(s): Ankle, Left and Foot, Left PERIPHERAL IV DATA: Not applicable SIGNED BY: RT Amina(R) November 11, 2021 11:34 AM [facility] 11-11-2021 Note HNO ID: [id number] Author: Mary Gamez APRN.LEAD DATA ENTRY OPERATOR Service: ? Author Type: Nurse Practitioner Type: Progress Notes Filed: 11/11/2021 2:03 PM Note Text: Subjective HPI Nontoxic-appearing female presents urgent care chief complaint left foot and ankle pain. Duration of symptoms 24 hours. Associated symptoms left ankle pain, foot pain, swelling and bruising. Patient states she was at a trampoline park yesterday when she jumped landing wrong injuring her left ankle. Patient states is unable to bear weight with ambulation. Denies any OTC medication use. Has been using crutches this has helped with discomfort. Denies any history of foot ankle surgery or trauma. Denies any numbness no tingling no decreased sensation. Denies any other injuries. No head no neck no back pain no LOC. Denies chance of is not breast-feeding past medical history prescription medication use allergies reviewed. .Patient presents with: Pain (foot): L foot pain x1 day PAST MEDICAL HISTORY Diagnosis Date - Anxiety and depression PAST SURGICAL HISTORY Procedure Laterality Date - RECONSTR NOSE Rhinoplasty - REMOVAL ADENOIDS,PRIMARY,<12 Y/O Adenoidectomy - REMOVAL OF TONSILS,<12 Y/O Tonsillectomy ALLERGIES Morphine MEDICATIONS methadone (DOLOPHINE) 10 mg tablet Take 20 mg by mouth once daily. FAMILY HISTORY Problem Relation Age of Onset - Diabetes Maternal Grandmother - Cancer Maternal Grandfather - Hypertension Mother - other (hypoglycemia [Other]) Mother Social History Tobacco Use - Smoking status: Former Smoker - Smokeless tobacco: Never Used Substance Use Topics - Alcohol use: No Comment: occasional - Drug use: No BP 126/82 Pulse 81 Temp 36.6 ?C (97.9 ?F) Resp 16 Wt 59.7 kg (131 lb 9.6 oz) LMP 06/07/2015 (Exact Date) SpO2 96% BMI 23.88 kg/m? Review of Systems Constitutional: Negative for chills, fever and malaise/fatigue. HENT: Negative for congestion, ear discharge, ear pain, sinus pain and sore throat. Eyes: Negative for blurred vision, pain, discharge and redness. Respiratory: Negative for cough, hemoptysis, sputum production, shortness of breath, wheezing and stridor. Cardiovascular: Negative for chest pain. Gastrointestinal: Negative for abdominal pain, diarrhea, nausea and vomiting. Musculoskeletal: Positive for falls and joint pain. Negative for back pain, myalgias and neck pain. Skin: Negative for itching and rash. Neurological: Negative for dizziness and headaches. Objective Physical Exam Constitutional: General: She is not in acute distress. Appearance: She is not diaphoretic. HENT: Head: Normocephalic. Mouth/Throat: Mouth: Mucous membranes are moist. Pharynx: Oropharynx is clear. No oropharyngeal exudate or posterior oropharyngeal erythema. Eyes: Conjunctiva/sclera: Conjunctivae normal. Pupils: Pupils are equal, round, and reactive to light. Cardiovascular: Rate and Rhythm: Normal rate and regular rhythm. Heart sounds: Normal heart sounds. Pulmonary: Effort: Pulmonary effort is normal. No tachypnea, accessory muscle usage or respiratory distress. Breath sounds: Normal breath sounds. No stridor. Abdominal: Palpations: Abdomen is soft. Tenderness: There is no abdominal tenderness. Musculoskeletal: Cervical back: Normal range of motion and neck supple. No rigidity or tenderness. Left ankle: Swelling and ecchymosis present. No deformity or lacerations. Tenderness present over the lateral malleolus. Decreased range of motion. Left Achilles Tendon: Normal. Left foot: Decreased range of motion. Normal capillary refill. Swelling, tenderness and bony tenderness present. No deformity or laceration. Normal pulse. Feet: Feet: Comments: Point tenderness with palpation. Ecchymosis bruising noted. No breaks in skin. Neurovascular intact. Lymphadenopathy: Cervical: No cervical adenopathy. Skin: General: Skin is warm and dry. Neurological: Mental Status: She is alert and oriented to person, place, and time. ASSESSMENT/PLAN: 1. Injury of left foot, initial encounter - ICD9: 959.7, ICD10: S99.922A (primary diagnosis) - XR FOOT GENERAL 3V AP/LAT/OBL LEFT 2. Acute left ankle pain - ICD9: 719.47, ICD10: M25.572 - XR ANKLE GENERAL 3V AP/LAT/OBL LEFT 3. Closed displaced fracture of navicular bone of left foot, initial encounter - ICD9: 825.22, ICD10: S92.252A - CONSULT TO PODIATRY IMPRESSION: Navicular fracture. Patient placed in Ortho boot. Podiatry referral placed. Follow-up with podiatry within a week. Patient will use crutches. Will treat as nonweightbearing injury till follows up with podiatry. Patient was educated on supportive therapies. Patient will follow up with primary care provider as needed. Patient was instructed to immediately proceed to emergency room for any new, worsening, or symptoms lasting longer than anticipated. The patient's clinical presentation is oth (more content not included)... [facility] 11-11-2021 History of Present illness Narrative Radiology Service Progress Note PATIENT NAME: Amanda James DATE OF SERVICE: November 11, 2021 TIME: 11:34 AM PATIENT IDENTITY VERIFICATION COMPLETED USING TWO (2) IDENTIFIERS: Name and Date of confirmed by patient verbally. FALL SCREENING: Has the patient had 2 falls in the last year or 1 fall with injury or currently using an Ambulatory Assistive Device (Walker, Cane, Wheelchair, Crutches, etc.)? No PATIENT GENDER DATA: Female. status: : No status: NO. PATIENT RELEVANT IMPLANT DATA REVIEWED: Yes RADIOLOGY DEPARTMENT: General X-ray: Exam(s) Completed: Lower Extremity X-Ray(s): Ankle, Left and Foot, Left PERIPHERAL IV DATA: Not applicable SIGNED BY: RT Amina(R) November 11, 2021 11:34 AM documented in this encounter [facility] 08-15-2021 Note HNO ID: [id number] Author: Gloria Islas PA-C Service: ? Author Type: Physician Fish Culturist Type: Progress Notes Filed: 08/15/2021 10:33 AM Note Text: This note was created using [employer]ight[employer]. Subjective Amanda James is a 31 year old female. HPI Patient presents with headache, fever and body aches over the past day. She has had a sore throat but that has improved. Denies a cough. She has had some urinary frequency and urgency as well. No abdominal pain or back pain. No blood in her urine. She does currently have a ParaGard IUD. She is not sexually active. No vaginal discharge. She states multiple family members have URI symptoms right now but have not been tested for Covid. No abdominal pain or vomiting. Review of Systems Constitutional: Positive for chills, fatigue and fever. HENT: Positive for sore throat. Negative for congestion and rhinorrhea. Respiratory: Negative for cough. Cardiovascular: Negative. Gastrointestinal: Negative for abdominal pain, constipation, diarrhea, nausea and vomiting. Genitourinary: Positive for frequency and urgency. Negative for dysuria and hematuria. Musculoskeletal: Negative for back pain and myalgias. All other systems reviewed and are negative. PAST MEDICAL HISTORY Diagnosis Date - Anxiety and depression Current Outpatient Medications Medication Sig Dispense Refill - methadone (DOLOPHINE) 10 mg tablet Take 20 mg by mouth once daily. - sulfamethoxazole-trimethoprim (BACTRIM DS) 800-160 mg per tablet Take 1 tablet by mouth twice daily for 5 days. 10 tablet 0 No current facility-administered medications for this visit. PAST SURGICAL HISTORY Procedure Laterality Date - RECONSTR NOSE Rhinoplasty - REMOVAL ADENOIDS,PRIMARY,<12 Y/O Adenoidectomy - REMOVAL OF TONSILS,<12 Y/O Tonsillectomy FAMILY HISTORY Problem Relation Age of Onset - Diabetes Maternal Grandmother - Cancer Maternal Grandfather - Hypertension Mother - other (hypoglycemia [Other]) Mother Social History Tobacco Use - Smoking status: Former Smoker - Smokeless tobacco: Never Used Substance Use Topics - Alcohol use: No Comment: occasional - Drug use: No Objective BP 120/72 Pulse 100 Temp (!) 38.2 ?C (100.7 ?F) Resp 18 Wt 59.4 kg (131 lb) LMP 06/07/2015 (Exact Date) SpO2 97% BMI 23.77 kg/m? Physical Exam Vitals reviewed. Constitutional: Appearance: Normal appearance. HENT: Head: Normocephalic and atraumatic. Right Ear: Tympanic membrane, ear canal and external ear normal. Left Ear: Tympanic membrane, ear canal and external ear normal. Nose: Congestion present. Mouth/Throat: Mouth: Mucous membranes are moist. Pharynx: Oropharynx is clear. Cardiovascular: Rate and Rhythm: Normal rate and regular rhythm. Heart sounds: Normal heart sounds. Pulmonary: Effort: Pulmonary effort is normal. Breath sounds: Normal breath sounds. Abdominal: General: Abdomen is flat. Palpations: Abdomen is soft. Tenderness: There is no abdominal tenderness. There is no right CVA tenderness, left CVA tenderness or guarding. Musculoskeletal: Cervical back: Neck supple. Lymphadenopathy: Cervical: No cervical adenopathy. Skin: General: Skin is warm and dry. Findings: No rash. Neurological: General: No focal deficit present. Mental Status: She is alert and oriented to person, place, and time. Assessment and Plan ASSESSMENT/PLAN: 1. Fever, unspecified fever cause - ICD9: 780.60, ICD10: R50.9 Likely viral illness, covid19 testing pending. Her urine did have small blood and she is having some symptoms of uti so I will start her on bactrim. Can d/c if culture negative. Red flags. - UA DIP, URINE (POC) - 2019 CORONAVIRUS - URINE CULTURE Gloria Islas PA-C [facility] Evaluation + Plan note No data available for this section [facility] Evaluation note Diagnosis Injury of left foot, initial encounter Acute left ankle pain documented in this encounter [facility] Discharge instructions No data available for this section [facility] Progress note No data available for this section [facility] Reason for referral (narrative)* Diagnostic Procedure Only (Urgent) - Closed Specialty Diagnoses / Procedures Referred By Contelmo t Referred To Contact XR IMAGING Diagnoses Acute left ankle pain Procedures XR ANKLE GENERAL 3V AP/LAT/OBL LEFT X-RAY ANKLE MINIMUM 3 VIEWS Mary Gamez APRN.LEAD DATA ENTRY OPERATOR [address] [place] [address] [place] [address] Referral ID Status Reason Start Date Expiration Date V isits Requested Visits Authorized [id number] Closed Auto-Generate d Referral 11/11/2021 12/11/2022 1 1 * Diagnostic Procedure Only (Urgent) - Closed Specialty Diagnoses / Procedures Referred By Chantell t Referred To Contact XR IMAGING Diagnoses Injury of left foot, initial encounter Procedures XR FOOT GENERAL 3V AP/LAT/OBL LEFT X-RAY FOOT MINIMUM 3 VIEWS Mary Gamez APRN.CNP [address] [place] [address] [place] [address] Referral ID Status Reason Start Date Expiration Date V isits Requested Visits Authorized [id number] Closed Auto-Generate d Referral 11/11/2021 12/11/2022 1 1 [facility] for visit Narrative* Diagnostic Procedure Only (Urgent) - Closed Specialty Diagnoses / Procedures Referred By Contac t Referred To Contact XR IMAGING Diagnoses Acute left ankle pain Procedures XR ANKLE GENERAL 3V AP/LAT/OBL LEFT X-RAY ANKLE MINIMUM 3 VIEWS Mary Gamez APRN.CNP [address] [place] [address] [place] [address] Referral ID Status Reason Start Date Expiration Date V isits Requested Visits Authorized [id number] Closed Auto-Generate d Referral 11/11/2021 12/11/2022 1 1 [facility] Summary Purpose Family History No Family History Records Found No data available for this section No data available for this section No data available for this section No Family History Records Found Advance Directives No Advanced Directives Records FoundNo Advanced Directives Records Found Additional Source Comments INFORMATION SOURCE (unrecogn ized section and content) DATE CREATED AUTHOR 01/21/2022 [facility] DATE CREATED AUTHOR AUTHOR'S ORGANIZ ATION 04/29/2024 [facility] (ID) Care Team (unrecognized sect ion and content) Care Team Personnel Name: Pamela Londono Clersteve Nice PT Position: P3 Scheduling - Tile Layer Helper Advanced Member Role: Other Name: EHSAN LYNN APRN - LEAD DATA ENTRY OPERATOR Position: P4 Advanced Practice Nurse Member Role: Primary Care Physician Address: Address: [address] [place] [address] [place] [address]- Care Team Related Persons Name: EMILY GONZALES Address: Home [address] [place], [place] [id number] [place] Name: EMILY GONZALES Address: Home [address] [place], [place] [id number] [place] Name: KATALINA GONZALES Address: Home [address] [place], [place] [id number] [place] Address: Temporary [address] [place], [place] [id number] Patient Care team informatio n (unrecognized section and content) Station Baggage Porter Relationship Specialty Start Date End Date Ehsan Lynn Feliz, LEAD DATA ENTRY OPERATOR [address] [place] [address] PCP - General Family Medicine 08/15/21 Source Comments (unrecognize d section and content) In the event this informatio n is protected by the Federal Confidentiality of Alcohol and Drug Abuse Patient Records regulations: The Federal rules restrict any use of the information to criminally investigate or prosecute any alcohol or drug abuse patient.[facility] FOR RECORDS PERTAINING TO PATIENTS WHO ARE OR HAVE BEEN ENROLLED IN A CHEMICAL DEPENDENCY/SUBSTANCEABUSE PROGRAM, SOME INFORMATION MAY BE OMITTED. This clinical summary was aggregated from multiple sources. Caution should be exercised in using it in the provision of clinical care. This summary normalizes information from multiple sources, and as a consequence, information in this document may materially change the coding, format and clinical context of patient data. In addition, data may be omitted in some cases. CLINICAL DECISIONS SHOULD BE BASED ON THE PRIMARY CLINICAL RECORDS. [facility] [email or web address] [facility]. provides no warranty or guarantee of the accuracy or completeness of information in this document.
--- NOTE | 2024-09-20 23:27 | CT_ITS ---
STUDY: CT ABDOMEN AND PELVIS WITH CONTRAST - URINARY TRACT REASON FOR EXAM: Female, 34 years old. rite sided abd pain RADIATION DOSAGE (If Supplied By Facility): CTDIvol = ( 9.39 ) mGy, DLP = ( 426.02 ) mGycm TECHNIQUE: IV 100mL Isovue-300 was administered. Transaxial images were obtained from the dome of the diaphragm to the symphysis pubis in the arterial, nephrographic and excretory phases. Multiplanar coronal and sagittal images were reformatted. The protocol utilizes one or more of the following dose reduction techniques: automated exposure control, adjustment of mA and/or kV according to patient size,and/or use of iterative reconstruction technique. COMPARISON: No relevant prior comparison study available FINDINGS: The visualized lung bases are unremarkable. The visualized portions of the heart are within normal limits. Normal liver. Normal gallbladder and extrahepatic biliary system. Normal spleen. Normal pancreas. Normal bilateral adrenal glands. Normal visualized stomach. Normal small intestine. Normal colon. The appendix is visualized and appears normal. Normal abdominal aorta. No retroperitoneal adenopathy. Normal right kidney. Normal left kidney. Normal urinary bladder. There is thickening of the abdominal wall muscles in the right lower quadrant suggesting hematoma measuring 2.5 cm in maximum thickness. Normal osseous structures. CT/Abdomen/Pelvis W IV Cont ONLY IMPRESSION: There is thickening of the abdominal wall muscles in the right lower quadrant suggesting hematoma measuring 2.5 cm in maximum thickness. Electronically Signed: Edgar Granados MD at 0:15 EDT ,
[2024-09-20] MEDS: Ondansetron 4 MG/2 ML Vial IV (23:33)
[2024-09-20] MEDS: Ketorolac 15 MG/ML Vial IV (23:33)
--- NOTE | 2024-09-20 23:40 | EDS_ITS ---
HPI HPI - GI History of Present Illness Chief Complaint: Abd Pain Informant: patient Narrative Narrative: Patient is a 34-year-old female denies any past medical history presenting with worsening lower abdominal pain. She states on Thursday night, 2 nights ago she had pain in her stomach. She is in her suprapubic region she describes as sharp. It went on throughout the night. Seem to be getting better but then when she got home from work today she started having the pain again. She describes it as almost gas pain or cramping. She states the pain got so bad that she started to sweats and threw up. She feels that she threw up because of pain and not because of true nausea. States the pain is now more on the right side and rating to her back. States that area feels hot. Her last menstrual period was beginning of August. She is not concern for as she has an IUD. She states that she has had normal bowel movements and is not reporting any black or blood in her stool. Denies any fever. Has a history of any a bdominal surgeries. Did not take any medications prior to arrival. Denies any cough or shortness of breath. Does report sharp pain in the right side of her chest coming up from her abdomen. She is her symptoms are better when she crunches over and worse when she moves or stretches out. Never had any like this before. No other complaints or concerns reported at this time [facility] Medical History no medical history Home Medications ?Medication ?Instructions ?Recorded ?Last Taken ?Type ondansetron 4 mg disintegrating 4 mg PO Q8H PRN PRN Nausea #10 tabs 09/21/24 Unknown Rx tablet oxycodone 5 mg tablet 5 mg PO Q8H PRN pain 2 days #6 tabs 09/21/24 Unknown Rx Allergy/AdvReac Type Severity Reaction Status Date / Time morphine AdvReac Itching Verified 09/20/24 20:33 Social History Smoking Status: Current some day smoker tobacco type: e-cigarettes ROS ROS ED Constitutional Constitutional ED: Reports sweats; Denies chills or fever(s) Cardiovascular Cardiovascular: Reports chest pain Respiratory/Chest Respiratory/Chest: Denies cough Gastrointestinal Gastrointestinal: Reports abdominal pain, nausea and vomiting; Denies constipation or diarrhea Genitourinary Genitourinary ED: Denies dysuria, hematuria or urinary frequency Musculoskeletal Musculoskeletal: Reports back pain; Denies arthralgias or myalgias Integumentary Denies rash Neurologic Neurologic: Denies headache(s) EXAM Physical Exam Const Vital Signs: 09/20/24 20:33 09/20/24 22:59 09/20/24 23:55 Temperature 96.7 F L Temperature Source Temporal Pulse Rate 60 63 55 L Respiratory Rate 18 16 16 Blood Pressure 113/79 124/75 H 113/70 Blood Pressure Mean 90 91 84 Pulse Ox 99 98 96 Oxygen Delivery Method Room Air Room Air Room Air Positive well nourished and well developed General Appearance ED: well developed and NAD HEENT Reports moist mucous membranes Neck supple Resp normal respiratory effort and clear to auscultation bilaterally Cardio regular rate and regular rhythm GI non-tender GI Narrative: vague diffuse pain on the right side of the abdomen. Not highly reproducible. No rigidity or guarding of the abdomen. Auscultation: normoactive bowel sounds Palpation: soft and tender RLQ and RUQ Back/Spine no CVA tenderness Back/Spine Narrative: Mild tensional patient of the right lower lumbar flank area Thoracic Spine / Upper Back: Negative for thoracic spinal tenderness Lumbar Spine / Lower Back: Negative for lumbar spinal tenderness Extremity full ROM General Extremety ED: Negative for edema General Extremity: Negative for edema Neuro moves all extremities Sensorium / Orientation: alert Motor Exam: Negative for general weakness Psych mental status grossly normal and thought process normal Skin no wounds Rashes: no rashes MDM MDM MDM Narrative Medical decision making narrative: Patient evaluated for waxing and waning pain of her right side of her abdomen. It is worse with movement or when she stands up straight. Has associated nausea and vomiting. Denies any prior history of this. No other complaints or concerns at this time. Vital signs are normal in the emergency room. She remains hemodynamically st able. On exam she has more diffuse tenderness on the right side of her abdomen. Protocol labs including CBC and BMP were obtained as well as urinalysis. Urinalysis shows 1+ bacteria with the 100 leukocyte esterase but no nitrites and no significant white blood cells. Will send for culture but lower suspicion for UTI so she is does not report any urinary symptoms. Her CBC and BMP are normal. Serum is negative. Patient is given IV Toradol on Zofran for symptoms and the emergency room. CT abdomen pelvis is obtained which shows thickening in the area of the abdominal wall muscle in the right lower quadrant suggestive of a hematoma with maximum thickness of 2.5 cm. This correlates with her area of pain. After further discussion patient denies any trauma to the area or injuries. On repeat exam abdomen is soft. I do palpate the area of hematoma now. I do not feel any pulsatile mass. There is no blush noted on the CT consistent with active bleeding. She is not on any blood thinners denies any history of any bleeding issues. She does have increased pain after palpation and will give her dose of oxycodone. Patient will be discharged home with return precautions. At this time I do not think she requires further management for pain control or monitoring for ongoing active hemorrhage. She states she wrestle around with her daughter a lot and she is a 40 pound dog that sat on her the other day because some pain but not sure if these would cause this hematoma. She is not have any fever or leukocytosis or other signs concerning more for infection. Patient given close return precautions and outpatient general surgery follow-up instructions. Patient discharged home in stable condition. Lab Data Attestation: I reviewed the patient's lab results. Labs: Laboratory Results - last 24 hr 09/20/24 09/20/24 20:42 20:48 WBC 8.2 RBC 4.56 Hgb 13.8 Hct 40.7 MCV 89.3 MCH 30.3 MCHC 33.9 RDW Std Deviation 38.4 RDW Coeff of Amadeo 11.9 Plt Count 301 MPV 9.7 Immature Gran % (Auto) 0.200 Neut % (Auto) 52.6 Lymph % (Auto) 34.0 [place] % (Auto) 10.1 H Eos % (Auto) 2.4 Baso % (Auto) 0.7 Absolute Neuts (auto) 4.3 Absolute Lymphs (auto) 2.78 Nucleated RBC % 0 Sodium 139 Potassium 3.7 Chloride 107 Carbon Dioxide 28.0 Anion Gap 4 L BUN 14 Creatinine 0.78 Estim Creat Clear Calc 84.79 Est GFR (MDRD) Af Amer 109 Est GFR (MDRD) Non-Af 90 BUN/Creatinine Ratio 17.9 Glucose 98 Calcium 9.2 Serum , Qual NEGATIVE Urine Color Yellow Urine Clarity Clear Urine pH 5.0 Ur Specific [place] 1.025 Urine Protein 15 H Urine Glucose (UA) Normal Urine Ketones Negative Urine Occult Blood 50 H Urine Nitrite Negative Urine Bilirubin Negative Urine Urobilinogen Normal Ur Leukocyte Esterase 100 H Urine RBC 0-5 SEEN Urine WBC 0-5 SEEN Ur Squamous Epith Cells 0-5 SEEN Urine Bacteria 1+ Urine Mucus 0 SEEN Radiography Diagnostic Testing: Clinical Impression(s) from Imaging Studies Abdomen/Pelvis CT 09/20/24 23:27 IMPRESSION: There is thickening of the abdominal wall muscles in the right lower quadrant suggesting hematoma measuring 2.5 cm in maximum thickness. Electronically Signed: Edgar Granados MD at 0:15 EDT Reading Location ID and State: [facility] / [place] Tel , Service support , Discharge Plan Triage Chief Complaint: Abd Pain ED Provider: Lilliana Bolanos Dx/Rx/DC Orders Clinical Impression: Abdominal wall hematoma, Nausea & vomiting Instructions: ED Hematoma Prescriptions: New oxycodone 5 mg tablet 5 mg PO Q8H PRN (Reason: pain) 2 Days Qty: 6 0RF ondansetron 4 mg tablet,disintegrating 4 mg PO Q8H PRN PRN (Reason: Nausea) Qty: 10 0RF Stand Alone Forms: ED Work / School Excuse Primary Care Provider: Kindra Nelson NP Referrals: Mildred Bautista MD [Med Staff - Active Staff] - 3-5 Days if not improving Kindra Nelson NP, VICE PRESIDENT UNDERWRITING-C [Primary Care Provider] - Activity Restrictions/Additional Instructions: Your CT showed a blood collection of your abdominal wall in the right lower abdomen where your pain is. This is called a hematoma. I do not know what caused it. If you develop lightheadedness, worsening pain or increased swelling the area please return to the emergency room for repeat evaluation. Alternate ibuprofen and Tylenol for pain. He has been prescribed a stronger pain medication (oxycodone) for breakthrough severe pain. I also recommend icing the area. Please follow-up with general surgery for further evaluation of this. Avoid any strenuous activity or heavy lifting until your symptoms are improving. Print Language: Turkish Disposition Disposition: Home, Self Care
[2024-09-20 23:55] VITALS: BP 113/70; PULSE 55; RESP 16; O2SAT 96
[2024-09-21] MEDS: oxyCODONE 5 MG Tablet PO (00:54)
[2024-09-21 01:00] VITALS: BP 107/66; PULSE 65; RESP 18
== END 2024-09-21 01:12 | disposition home or self-care (01) ==
PROVIDERS: Emergency Provider Emergency Medicine; PCP Nurse Practitioner Family; Visit Provider Emergency Medicine
DX: S30.1XXA Contusion of abdominal wall, initial encounter (principal); R11.2 Nausea with vomiting, unspecified; F17.290 Nicotine dependence, other tobacco product, uncomplicated; R10.30 Lower abdominal pain, unspecified
CPT/HCPCS: 74177; 80048; 81001; 84703; 85025; 87086; 87088; 96374; 96375; 99283; Q9967; A4216; J2405

== ENCOUNTER → 2024-09-23 | Outpatient (CLI) | payer MEDICAID, SELFPAY ==
--- NOTE | 2024-09-23 16:54 | CT_ITS ---
INDICATION: ABDOMINAL PAIN, ABDOMINAL WALL HEMATOMA. EXAMINATION: CT Abdomen And Pelvis W/ Contrast Injection TECHNIQUE: Helically acquired images were obtained of the abdomen and pelvis after IV contrast. A radiation dose optimization technique was used for this scan. IV Contrast dosage and agent: IV 100mL Isovue-370 Oral contrast: None. COMPARISON: None. FINDINGS: Visualized lung bases: Unremarkable Liver: Unremarkable Gallbladder: Unremarkable Spleen: Unremarkable Pancreas: Unremarkable Adrenal Glands: Unremarkable Kidneys: Unremarkable Vasculature: Unremarkable GI Tract: Unremarkable Lymphadenopathy: None Peritoneum: No ascites. Bladder: Unremarkable Reproductive organs: IUD in place. Bones/Soft tissues: No suspicious osseous or soft tissue lesions CT/Abdomen/Pelvis WITH Contrast IMPRESSION: No acute abnormalities in the abdomen or pelvis. Electronically Signed: Junior Santamaria MD at 18:24 EDT ,
--- OUTSIDE RECORDS SUMMARY | 2024-09-23 17:43 | XMS RPT_ITS | CCD ---
Author Organization [facility] Informalleghany health Partnership [facility] Care Team Providers Care Logistical Engineer Name Role Phone GRACE CASTRON - STUDIO DATA ANALYST, EHSAN Piper Primary Care Phys ician Spring PT, Arlet Unavailable Unavailable GRACE QUEZADA - STUDIO DATA ANALYST, EHSAN Piper Primary Care U avinash SALAZAR MD, DR AJIT Sandoval Attending Unavailable MASSIMO OPERATIONS MANAGER/COORDINATOR-STUDIO DATA ANALYST, RYAN Salvador Attending Un available GRACE QUEZADA - STUDIO DATA ANALYST, EHSAN Piper Primary Care U avinash LYNN OPERATIONS MANAGER/COORDINATOR - STUDIO DATA ANALYST, EHSAN Piper Primary Care U navailable NITA OPERATIONS MANAGER/COORDINATOR-STUDIO DATA ANALYST, SACHIN Attending Irmavai yao Lynn CNP, Ehsan Piper Primary Care Provider Allergies Allergy Classification Reported Allergen(s) Allergy Type Date of Onset Reaction(s) Facility (9 sources) Morphine; Translations: [morphine] Drug Allergy 02-04-2013 [facility] (2 sources) Prochlorperazine ; Translations: [prochlorperazin e] Drug Allergy [facility] [place] Comment on above: Severe anxiety Medications Current [...] q6h, # 18 gram(s), 0 Refill(s), Pharmacy: [facility], Leukocytosis Neutrophilia, 157.5, cm, 11/28/21 9:22:00 EST, Height, kg, 11/28/21 9:17:00 EST, Dosing Weight Start Date: 11/28/21 Stop Date: 12/28/21 Status: Ordered Start: 08-21-2021 take 2 puff(s) by in halation every four hours as needed for wheezing albuterol MDI (90 mcg/inh) CFC free inhalation aerosol 2 puff(s), Inhalation, q4h, PRN as needed for wheezing, # 18 gram(s), 0 Refill(s), Pharmacy: [facility], Chest congestion, 157.5, cm, 08/21/21 10:07:00 [...] tab(s), 0 Refill(s), 12/08/21 19:08:00 EST, Pharmacy: [facility], Leukocytosis Neutrophilia, 157.5, cm, 11/28/21 9:22:00 EST, Height, kg, 11/28/21 9:17:00 EST, Dosing Weight Start Date: 11/28/21 Stop Date: 12/08/21 Status: Ordered guaiFENesin 600 mg oral tablet (2 sources) Start: 11-28-2021 End: 12-05-2021 guaiFENesin 600 mg oral tablet, extended release Dose : 600 mg = 1 tab(s), Oral, q12h, X 7 day(s), # 14 tab(s), 0 Refill(s), 12/05/21 19:09:00 EST, Pharmacy: [facility], Leukocytosis Neutrophilia, 157.5, cm, 11/28/21 9:22:00 EST, Height, kg, 11/28/21 9:17:00 EST, Dosing Weight Start Date: 11/28/21 Stop Date: 12/05/21 Status: Ordered levoFLOXacin 750 mg oral tablet (2 sources) Quinolone Antimicrobial Start: 11-28-2021 End: 12-08-2021 levoFLOXacin 750 mg oral tablet Dose : 750 mg = 1 tab(s), Oral, q24h, X 10 day(s), # 10 tab(s), 0 Refill(s), 12/08/21 19:08:00 EST, Pharmacy: [facility], Leukocytosis Neutrophilia, 157.5, cm, 11/28/21 9:22:00 EST, Height, 59.9, kg, 11/28/21 9:17:00 EST, Dosing Weight Start Date: 11/28/21 Stop Date: 12/08/21 Status: Ordered Promethazine (2 sources) Phenothiazine Start: 11-28-2021 End: 12-08-2021 Promethazine DM 6.25 mg-15 mg/5 mL oral syrup Dose = 5 mL, Oral, q6hr, PRN for cough, not to exceed 6 doses/day, X 10 day(s), # 200 mL, 0 Refill(s), Pharmacy: [facility], Leukocytosis Neutrophilia, 157.5, cm, 11/28/21 9:22:00 [...] 0 Refill(s), 09/25/23 10:07:00 AM EDT, Pharmacy: [facility], 158, cm, 08/26/23 9:02:00 EDT, Height, [...] pain, # 30 tab(s), 0 Refill(s), Pharmacy: [facility], 158, cm, 08/26/23 9:02:00 EDT, Height, [...] 3:39:37 PM Ordering Provider: RYAN KEYS [facility] ([place] FT4on 08-26-2023 Free T4 [Mass/Vol] 1.26 ng/dL Normal 0.76-1.46 Pending sale to [facility] ([place]) Comment on above: Performed By: #### F T4, TSH, MONO #### [address] [address] LABORATORYOrdered By: SYSTEM SYSTEM on 08-26-2023 Free [...] SS MONOon 08-26-2023 Mononucleosis Negative [facility] [place] Comment on above: Performed By: #### F T4, TSH, MONO #### [address] [address] TSHon 08-26-2023 TSH Qn 0.71 m[IU]/L [facility] Comment on above: Performed By: #### F T4, TSH, MONO #### [address] [address] [address] HEAD OR BRAIN W/O CONTRAS Ton [...] 08/16/2023 10:51:33 PM Ordering Provider: AJIT SALAZAR [facility] ([place]) LABORATORYOrdered By: SYSTEM SYSTEM on 12-23-2022 Albumin [...] CNOV Office Visit ([facility]) ---- AMANDA JAMES ([id number]) 1990 F Date Time Provider Department 11/11/21 11:15 AM MARY GAMEZ [facility] During your visit today, we recorded the following information about you: Temperature Pulse Respiration Blood pressure 97.9 degrees 81/minute 16/minute 126/82 Weight 59.7 kg Mary Gamez APRN.STUDIO DATA ANALYST 11/11/2021 2:03 PM Addendum Subjective HPI Nontoxic-appearing [...] podiatry. Jayme (more content not included)... 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 Problem List As Of Date: 11/11/2021 (None) Encounter Status:Closed by INEZ RODRÍGUEZ on 11/20/21 [facility] [place] ANGELAN Telephone (XRI) ---- ERIKAAMANDA ([id number]) 1990 F Date Time Provider Department 11/11/21 [...] at all possible. If patient can not picking crew supervisor on 11-12-21 please let patient know. Thank you ! 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 Problem List As Of Date: 11/11/2021 (None) Encounter Status:Closed by LORRIE FISHGIGISHO on 11/11/21 Normal [facility] No Panel Informationon 11-11 IMPRESSION: Navicular fracture. Mold Maker Apprentice: JACQUELINE Transcribe Date/Time: Nov 11 2021 12:04P Dictated by : KWAKU NEGRON MD This examination was interpreted and the report reviewed and electronically signed by: KWAKU NEGRON MD on Nov 11 2021 12:10PM [facility] DIVISION OF RADIOLOGY Radiology Study observation (narrative) [facility] No Panel InformationOrdered By: Ccf Provider on 11-11-2021 [facility] XR ANKLE 3V AP/LAT/OBL LTon 11-11-2021 [...] significant soft tissue swelling. IMPRESSION: Navicular fracture. Mold Maker Apprentice: PSCB Transcribe Date/Time: Nov 11 2021 12:04P Dictated by : KWAKU NEGRON MD This examination was interpreted and the report reviewed and electronically signed by: KWAKU NEGRON MD on Nov 11 2021 12:10PM EST [id number] Normal [facility] XR Ankle - left AP and Later [...] soft tissue swelling. DIVISION OF RADIOLOGY Provider, [facility] [place] - 11/11/2021 * * *Final Report* * [...] soft tissue swelling. IMPRESSION IMPRESSION: Navicular fracture. Mold Maker Apprentice: JACQUELINE Transcribe Date/Time: Nov 11 2021 12:04P Dictated by : KWAKU NEGRON MD This examination was interpreted and the report reviewed and electronically signed by: KWAKU NEGRON MD on Nov 11 2021 12:10PM [facility] XR FOOT 3V AP/LAT/OBL LTon 1 01-12-2021 [...] significant soft tissue swelling. IMPRESSION: Navicular fracture. Mold Maker Apprentice: JACQUELINE Transcribe Date/Time: Nov 11 2021 12:04P Dictated by : KWAKU NEGRON MD This examination was interpreted and the report reviewed and electronically signed by: KWAKU NEGRON MD on Nov 11 2021 12:10PM EST [id number] Normal [facility] XR Foot - left AP and Latera [...] tissue swelling. DIVISION OF RADIOLOGY Provider, [facility] - 11/11/2021 * * *Final Report* [...] soft tissue swelling. IMPRESSION IMPRESSION: Navicular fracture. Mold Maker Apprentice: JACQUELINE Transcribe Date/Time: Nov 11 2021 12:04P Dictated by : KWAKU NEGRON MD This examination was interpreted and the report reviewed and electronically signed by: KWAKU NEGRON MD on Nov 11 2021 12:10PM [facility] 08-17-2021 [facility] AMANDA JAMES ([id number]) 1990 F Date Time Provider Department 08/17/21 MIROSLAVA HORTON [facility] During your visit today, we recorded the following information about you: Miroslava Horton APRN.[facility] 08/17/2021 12:29 PM Signed Please inform [...] Status:Closed by [place] RENEE on 08/17/21 Normal [facility] CNOVon 08-15-2021 [facility] AMANDA JAMES ([id number]) 1990 F Date Time Provider Department 08/15/21 8:15 AM GLORIA [facility] During your visit today, we recorded the following information about you: Temperature Pulse Respiration Blood pressure 100.7 degrees 100/minute 18/minute 120/72 Weight 59.4 kg Gloria Islas PA-C 08/15/2021 10:33 AM Signed This note was created using Yoomly. Subjective Amanda James is a 31 year [...] fever cause [R50.9] Order(s):UA DIP, URINE (POC) [0824390] Order #: [id number]. #:[id number] 2019 CORONAVIRUS [SQCOVID] Order #: [id number] FUTURE sulfamethoxazole-tr imethoprim (BACTRIM DS) 800-160 mg per tabletTake 1 tablet by mouth twice daily for 5 days.Disp: 10 tabletRfl: 0 URINE CULTURE [SQURCUL] Order #: [id number] Prescriptions as of 08/15/2021 - methadone (DOLOPHINE) 10 mg tablet Take 20 mg by mouth once daily. - sulfamethoxazole-tr imethoprim (BACTRIM DS) 800-160 mg per tablet Take 1 tablet by mouth twice daily for 5 days. Problem List As Of Date: 08/15/2021 ( (more content not included)... Normal [facility] Coronavirus 2019on 1 SARS-CoV-2 (COVID-19) RNA NATANAEL+probe Ql (Unsp spec) UPPER RESPIRATORY TRACT SWAB Normal [facility] Comment on above: Performed By: #### C OVID #### [place] [address] [place] [id number] SARS-CoV-2 (COVID-19) RNA NATANAEL+probe Ql (Unsp spec) Positive for COVID19 (SARS CoV2) by RT-PCR or equivalent method. Critically abnormal Negative for COVID19 (SARS CoV2) by RT-PCR or equivalent method. [facility] Comment on above: Result Comment: This test was developed and its performance characteristics determined by [facility]'s [facility] [place]. This test has been authorized by FDA under an Emergency Use Authorization (EUA). This test has been validated in accordance with the FDA's Guidance Document Policy for Diagnostics Testing in Laboratories Certified to Perform High Complexity Testing under CLIA prior to Emergency use Authorization for Coronavirus Disease 2019 during the Public Health Emergency issued on January 28, 2020. Test performed by [facility], [facility] [place], [address] [place], [place] [address]. Performed By: #### C OVID #### [facility] [address] [place], [place] [address] Urine Cultureon 08-15-2021 Bacteria identified Cx Nom (U) Sp. Request/Comment: - Specimen received in preservative Culture Result - <10,000 CFU/ml Three or more organisms, no one type predominant, suggesting contamination during collection. Recollect if clinically indicated. Normal [facility] Comment on above: Performed By: #### U RCUL #### [facility] [address] [place] [address] [address] Vital Signs Date Time Vital Sign Value Performing Clinician Faci lity 08-16-2023 21:43-[address] Pressure Cuff Size DR AJIT SALAZAR MD [facility] 08-16-2023 21:43-[address] AJIT SALAZAR MD [facility] 08-16-2023 21:43-[address] AJIT SALAZAR MD [facility] 08-16-2023 21:43-0400 Body temperature 99.32 [degF] DR AJIT SALAZAR MD [facility] 08-16-2023 21:43-0400 Diastolic Blood Pressure Non-Invasive [address] AJIT SALAZAR MD [facility] 08-16-2023 21:43-0400 Heart rate 73 /min DR AJIT SALAZAR MD [facility] 08-16-2023 21:43-0400 Respiratory rate 18 /min DR AJIT SALAZAR MD [facility] 08-16-2023 21:43-0400 Systolic Blood Pressure Non-Invasive [address] AJIT SALAZAR MD [facility] Encounters Encounter Date Encounter Type Care Provider Facility Start: 04-20-2024 End: 04-21-2024 ambulatory RYAN Salvador MASSIMO OPERATIONS MANAGER/COORDINATOR-STUDIO DATA ANALYST Facility:B Start: 04-20-2024 End: 04-20-2024 Patient encounter procedure RYAN Salvador MASSIMO OPERATIONS MANAGER/COORDINATOR-STUDIO DATA ANALYST [facility] Start: 08-26-2023 End: 08-27-2023 ambulatory EHSAN LYNN OPERATIONS MANAGER/COORDINATOR - STUDIO DATA ANALYST Facility:[facility] Start: 08-26-2023 End: 08-26-2023 Patient encounter procedure SACHIN MOYA OPERATIONS MANAGER/COORDINATOR-STUDIO DATA ANALYST [facility] Start: 08-16-2023 End: 08-17-2023 Emergency department patient visit EHSAN LYNN OPERATIONS MANAGER/COORDINATOR - STUDIO DATA ANALYST Facility:[facility] Start: 08-16-2023 End: 08-16-2023 Emergency department patient visit DR AJIT SALAZAR MD [facility] Start: 12-23-2022 End: 12-23-2022 Patient encounter procedure HARPREET MCCOY DO [facility] Start: 12-16-2021 End: 12-16-2021 Patient encounter procedure EHSAN LYNN OPERATIONS MANAGER/COORDINATOR - STUDIO DATA ANALYST [facility] Start: 11-28-2021 End: 11-28-2021 Patient encounter procedure EHSAN BLANCOKINS OPERATIONS MANAGER/COORDINATOR - STUDIO DATA ANALYST [facility] Start: 11-13-2021 End: 11-13-2021 Patient encounter procedure EDWIN HOWELL DPM [facility] Start: 11-11-2021 End: 11-11-2021 Subsequent hospital visit by physician Chidi Pending Sale [facility] Work Phone: Radiology Comment on above: Injury of left foot, initial encounter [T17.823F] Procedures Date Procedure Procedure Detail Performing Clinician Start: 11-11-2021 Radex ankle complete minimum 3 views Mary Gamez OPERATIONS MANAGER/COORDINATOR.STUDIO DATA ANALYST Work Phone: History of tonsillectomy History of tonsillectomy( Confirmed ) EDWIN JOLIE DPM Plan of Treatment Date Care Activity Detail Author Start: 07-31-2024 Covid-19 Vaccine () Covid-19 Vaccine () [facility] Start: 07-31-2024 Influenza vaccination Influenza Vacc ine (#1) [facility] Start: 07-12-2020 Urine microalbumin profile DTa P,Tdap,Td Vaccine (7 - Td or Tdap) [facility] Start: 03-01-2016 Screening for malign ant neoplasm of cervix Cervical Cancer Screening [facility] Start: 08-09-2010 HPV Vaccine (2 - 3-d ose series) HPV Vaccine (2 - 3-dose series) [facility] Start: 2009 Anxiety Screening Anxiety Screening [facility] Start: 2009 Depression Screening Depression Scre ening [facility] Start: 2009 Hepatitis C screening Hepatitis C Sc reening [facility] Start: 2009 HIV screening HIV Screening [facility] Immunizations Immunization Date Immunization Notes Care Provider Julianna dwyer 01-22-2011 hepatitis B pediatri c vaccine RYAN KEYS OPERATIONS MANAGER/COORDINATOR-STUDIO DATA ANALYST [facility] 08-12-2010 hepatitis B pediatri c vaccine RYAN KEYS OPERATIONS MANAGER/COORDINATOR-STUDIO DATA ANALYST [facility] 07-12-2010 hepatitis B pediatri c vaccine RYAN KEYS OPERATIONS MANAGER/COORDINATOR-STUDIO DATA ANALYST [facility] 07-12-2010 Human Papillomavirus Quadval RYAN KEYS OPERATIONS MANAGER/COORDINATOR-STUDIO DATA ANALYST [facility] 07-12-2010 meningococcal polysaccharide (groups A, C, Y and W-135) diphtheria toxoid conjugate vaccine (MCV4P) RYAN KEYS OPERATIONS MANAGER/COORDINATOR-STUDIO DATA ANALYST [facility] 07-12-2010 tetanus toxoid, redu lay diphtheria toxoid, and acellular pertussis vaccine, adsorbed RYAN KEYS OPERATIONS MANAGER/COORDINATOR-STUDIO DATA ANALYST [facility] 05-29-1997 measles/mumps/rubell a virus vaccine RYAN KEYS OPERATIONS MANAGER/COORDINATOR-STUDIO DATA ANALYST [facility] 11-01-1992 measles/mumps/rubell a virus vaccine RYAN KEYS OPERATIONS MANAGER/COORDINATOR-STUDIO DATA ANALYST [facility] Payers Date Payer Category Payer Unknown [id number] 2021 Medicaid [employer] [facility] MEDICAID [id number] 2021-2022 [address] [place] [address] Medicaid [id number] 1990 Unknown [id number] 1990 Unknown [id number] 1990 Unknown [id number] Social History Date Type Detail Facility Start: 06-20-2015 End: 09-27-2020 Ex-smoker (finding) [facility] Sex Assigned At Female [facility] History of tobacco use Current smoker [place] Start: 06-20-2015 Tobacco use and exposure Smokeless tobacco non-user [facility] Start: 11-11-2021 Alcoholic beverage intake Current non-drinker of alcohol (finding) [facility] Start: 08-15-2021 End: 11-11-2021 History of Social function [facility] Start: 08-15-2021 End: 11-11-2021 Tobacco use panel [facility] National Score (1-100), lower number is lower risk Not on file [facility] Start: 02-04-2013 Alcohol Comment occasional [facility] Start: 1990 Sex assigned at Not on file [facility] Start: 10-12-2021 End: 11-11-2021 Exposure to SARS-CoV-2 (event) Not sure [facility] Functional Status Date Assessment Result Facility 08-16-2023 Functional Status [facility] Mental Status Date Assessment Result Facility 08-16-2023 Mental Status Orientation Oriented x 4 [facility] Clinical Notes 08-15-2021 to 08-17-2023 RadiologyRadiologyRadiologyJaclyn cheema [...] face You have trouble talking or seeing [phone] The [employer]. [address] [place] [address]. All rights reserved. This information is not intended as a substitute for professional medical care. Always follow your healthcare professional's instructions. Follow Up Care 08/16/2023 21:34:47 With:EHSAN LYNN APRN - [facility] Address: [address] [place] [address]- When:2-4 days [facility] 08-16-2023 Note Discharge Instructions Thank you [...] CNP When Within 2-4 days Where: [address] [place], [place] [id number]- Allergies Morphine Sulfate Medications Please ask your [...] face You have trouble talking or seeing [phone] [employer]. [address] [facility], [place] [address]. All rights reserved. This information is not intended as a substitute for professional medical care. Always follow your healthcare professional's instructions. Additional Information VACCINATE! IT SAVES LIVES! Members of the community who have not yet received the COVID-19 vaccine and would like to receive it can visit one of [facility] vaccine clinics. There are many vaccine clinic locations within the [facility]. For locations and available times, please visit www.gettheshot.coronavirus.[place].gov/. It is important to note that some COVID mobile vaccine clinics are held outdoors and may be canceled in rainy or stormy conditions. To learn more about pediatric vaccinations (ages 5-11), we invite you to visit the [employer] [facility] webpage. https://www.akronNuovo Biologicss.org/pages/2019 -Nusbe-Yzwmrkxziwg-Szjeqkmetm-Asked-Quest ions.html To learn more about the COVID-19 vaccine, we invite you to visit the CDC website for a list of frequently asked questions. https://www.cdc.gov/coronavirus/2019-ncov /vaccines/faq.html [employer] Patient Portal Access Instructions: Stay connected with your healthcare team and access your personal medical information anytime with the [employer] Patient Portal. If you would like a full copy of your medical records please contact the [facility] Medical Records Department Thursday through Thursday between 8a.m. and 4:30p.m. Please follow the directions below to access the portal: 1.Access the email account you provided upon registration to the hospital.2.Look for an invitation email from [facility].3.Open the email and access the invitation link: Accept Invitation to [employer] [facility]4.Fill in the required michael to create your account. Sign into [email or web address] with your username and password that you [...] you will allow to register on the [employer] Patient Portal for access to your information. You can also access the [employer] Patient Portal on the Resource Interactive. Simply click on Health Records under Health Data and then click on the [employer] logo. HOW TO SAFELY DISPOSE OF PRESCRIPTION [...] Call your local pharmacy or go to http://Rootless.Criteo/1Q6Kx4k to find one close to you.3.Make use of household items: Use cat litter or old coffee grounds to dispose medications if other options are not available. Mix your drugs with these household products, seal them in an airtight container and throw it into the garbage. Call [facility]: [phone] to be sure your drugs can be [...] aware that I should contact my doctor. Patient/Welding Estimator Signature: Date/Time: Relationship to Patient: Witness Name/Signature: ___ Date/Time: [facility] 08-16-2023 Note ORIGINAL EXAMINATION: CT OF [...] 08/16/2023 10:51:33 PM Ordering Provider: AJIT SALAZAR [facility] 01-28-2023 Evaluation + Plan note Future Scheduled TestsMA Mammo Diagnostic Bilateral w/Jim 01/28/23 [facility] 12-23-2022 Evaluation + Plan note Diagnostic Tests PendingDehydroepiandrosterone Sulfate 12/23/22Prolactin Level 12/23/22Testosterone Level Total 12/23/22Luteinizing Hormone 12/23/22Follicle Stimulating Hormone Level 12/23/22Estradiol Level 12/23/22 [facility] 11-28-2021 Evaluation + Plan note Future Scheduled TestsXR Chest 2 Views (PA & Lateral) 11/28/21 [facility] 11-28-2021 Evaluation + Plan note Diagnostic Tests PendingRespiratory ID Panel with COVID-19 by PCR 11/28/21 Future Scheduled TestsXR Chest 2 Views (PA & Lateral) 11/28/21 [facility] 11-11-2021 Note HNO ID: [id number] Author: RT Amina(R) Service: Radiology Author Type: [...] RT Amina(R) November 11, 2021 11:34 AM [facility] 11-11-2021 Note HNO ID: [id number] Author: Mary Gamez APRN.STUDIO DATA ANALYST Service: ? Author Type: Nurse Practitioner Type: [...] presentation is oth (more content not included)... [facility] 11-11-2021 History of Present illness Narrative Radiology [...] 2021 11:34 AM documented in this encounter [facility] 08-15-2021 Note HNO ID: [id number] Author: Gloria Islas PA-C Service: ? Author Type: Physician Incinerator Attendant Type: Progress Notes Filed: 08/15/2021 10:33 AM Note Text: This note was created using [employer]. Subjective Amanda James is a 31 year [...] CORONAVIRUS - URINE CULTURE Gloria Islas PA-C [facility] Evaluation + Plan note No data available for this section [facility] Evaluation note Diagnosis Injury of left foot, initial encounter Acute left ankle pain documented in this encounter [facility] Discharge instructions No data available for this section [facility] Progress note No data available for this section [facility] Reason for referral (narrative)* Diagnostic Procedure Only (Urgent) - Closed Specialty Diagnoses / Procedures Referred By Contelmo t Referred To Contact XR IMAGING Diagnoses Acute left ankle pain Procedures XR ANKLE GENERAL 3V AP/LAT/OBL LEFT X-RAY ANKLE MINIMUM 3 VIEWS Mary Gamez APRN.STUDIO DATA ANALYST [address] [place] [address] [place] [address] Referral ID Status Reason Start Date Expiration Date V isits Requested Visits Authorized [id number] Closed Auto-Generate d Referral 11/11/2021 12/11/2022 1 1 * Diagnostic Procedure Only (Urgent) - Closed Specialty Diagnoses / Procedures Referred By Chantell t Referred To Contact XR IMAGING Diagnoses Injury of left foot, initial encounter Procedures XR FOOT GENERAL 3V AP/LAT/OBL LEFT X-RAY FOOT MINIMUM 3 VIEWS Mary Gamez APRN.CNP [address] [place] [address] [place] [address] Referral ID Status Reason Start Date Expiration Date V isits Requested Visits Authorized [id number] Closed Auto-Generate d Referral 11/11/2021 12/11/2022 1 1 [facility] for visit Narrative* Diagnostic Procedure Only (Urgent) - Closed Specialty Diagnoses / Procedures Referred By Contac t Referred To Contact XR IMAGING Diagnoses Acute left ankle pain Procedures XR ANKLE GENERAL 3V AP/LAT/OBL LEFT X-RAY ANKLE MINIMUM 3 VIEWS Mary Gamez APRN.CNP [address] [place] [address] [place] [address] Referral ID Status Reason Start Date Expiration Date V isits Requested Visits Authorized [id number] Closed Auto-Generate d Referral 11/11/2021 12/11/2022 1 1 [facility] Summary Purpose Family History No Family History Records Found No data available for this section No data available for this section No data available for this section No Family History Records Found Advance Directives No Advanced Directives Records FoundNo Advanced Directives Records Found Additional Source Comments INFORMATION SOURCE (unrecogn ized section and content) DATE CREATED AUTHOR 01/21/2022 [facility] DATE CREATED AUTHOR AUTHOR'S ORGANIZ ATION 04/29/2024 Formerly [facility] Care Team (unrecognized sect ion and content) Care Team Personnel Name: Pamela Londono Clersteve Nice PT Position: P3 Scheduling - Loop Cutter Advanced Member Role: Other Name: EHSAN LYNN APRN - STUDIO DATA ANALYST Position: P4 Advanced Practice Nurse Member Role: Primary Care Physician Address: Address: [address] [place] [address] [place] [address]- Care Team Related Persons Name: EMILY GONZALES Address: Home [address] [place], [place] [id number] [place] Name: EMILY GONZALES Address: Home [address] [place], [place] [id number] [place] Name: KATALINA GONZALES Address: Home [address], [place] [id number] [place] Address: Temporary [address], [place] [id number] Patient Care team informatio n (unrecognized section and content) 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 [facility] [employer] [facility]. provides no warranty or guarantee of the accuracy or completeness of information in this document.
== END | disposition home or self-care (01) ==
PROVIDERS: PCP Nurse Practitioner Family; Referring Provider Nurse Practitioner Family; Visit Provider Nurse Practitioner Family
DX: R10.9 Unspecified abdominal pain (principal); S30.1XXA Contusion of abdominal wall, initial encounter; Z78.9 Other specified health status; Z13.9 Encounter for screening, unspecified
CPT/HCPCS: 74177; Q9967

== ENCOUNTER 2024-11-23 18:36 | Emergency (ER) | payer MEDICAID, SELFPAY ==
[2024-11-23 18:37] VITALS: BP 137/76; PULSE 63; RESP 18; TEMP 36.6; O2SAT 100; BMI 25.7
--- NOTE | 2024-11-23 19:02 | EX.ED.VIS.UR ---
HPI HPI - URI History of Present Illness Chief Complaint: Cold Sx Informant: patient Onset/Context/Timing Onset: Days Context: Gradual Onset Timing: Continuous Current Severity: Mild Maximum Severity: Mild Associated Symptoms Associated Symptoms: Positive for Nasal Congestion Narrative Narrative: Healthy 34-year-old female no seen past medical history. States she had COVID a week ago. Those symptoms are resolved she has had nasal congestion for a week with some dental pain. Denies any significant nasal drainage. No fever. No severe headache. Prior similar symptoms: Yes Recent Illness/Hospitalization: No ROS ROS ED ROS Narrative Nasal congestion Constitutional Constitutional ED: Denies chills or fever(s) Eyes Eyes: Denies blurry vision ENT ENT ED: Denies ear pain Cardiovascular Cardiovascular: Denies chest pain Respiratory/Chest Respiratory/Chest: Denies cough, dyspnea or other Gastrointestinal Gastrointestinal: Denies abdominal pain Genitourinary Genitourinary ED: Denies dysuria or hematuria Musculoskeletal Musculoskeletal: Denies arthralgias Integumentary Denies abscess or Abrasions Neurologic Neurologic: Denies headache(s) or paresthesias Psychiatric Psychiatric: Denies anxiety or depression Endocrine Endocrinology: Denies cold intolerance or heat intolerance Hematologic/Lymphatic Hematologic/Lymphatic: Denies easy bleeding or easy bruising Allergic/Immunologic Allergic/Immunologic ED: Denies mouth swelling or tongue swelling PFSH PFSH no medical history Home Medications ?Medication ?Instructions ?Recorded ?Last Taken ?Type ondansetron 4 mg disintegrating 4 mg PO Q8H PRN PRN Nausea #10 tabs 09/21/24 Unknown Rx tablet oxycodone 5 mg tablet 5 mg PO Q8H PRN pain 2 days #6 tabs 09/21/24 Unknown Rx prednisone 20 mg tablet 40 mg (2 x 20 mg) PO DAILY 7 days 11/23/24 Unknown Rx #14 tabs Allergy/AdvReac Type Severity Reaction Status Date / Time metoclopramide (From Reglan) Allergy Mild Anxiety Verified 11/23/24 18:37 morphine AdvReac Itching Verified 11/23/24 18:37 Social History Smoking Status: Current some day smoker tobacco type: e-cigarettes EXAM Physical Exam Narrative Exam Narrative: 34-year-old female vital signs are stable afebrile she does not look septic toxic no distress pulse ox on percent room air no signs hypoxia. H EENT exam pupils round reactive light. No specific sinus tenderness. Dentition in good shape. No trans illumination of the maxillary sinuses. Posterior pharynx normal. TMs normal bilaterally. Neck nontender no lymphadenopathy. Lungs clear to auscultation bilaterally. Heart regular rate and rhythm rate about 60 no murmur. Chest wall ribs nontender. Abdomen soft nontender. Moving all 4 extremities. Neurologically she is awake and alert no focal motor deficits. Const Vital Signs: 11/23/24 18:37 Temperature 98 F Temperature Source Temporal Pulse Rate 63 Respiratory Rate 18 Blood Pressure 137/76 H Blood Pressure Mean 96 Pulse Ox 100 Oxygen Delivery Method Room Air Positive well nourished and well developed; Negative for cachectic or contractures General Appearance ED: well developed and NAD; Negative for cachectic, contractures, cyanotic, diaphoretic or pallor Nutritional Appearance: Negative for cachectic HEENT Reports moist mucous membranes normocephalic and atraumatic Throat: posterior oropharynx normal Eyes PERRL and EOMs intact bilaterally General Eye ED: Negative for pale conjunctiva or scleral icterus Neck no lymphadenopathy, supple, no meningeal signs and no JVD General: Negative for anterior neck swelling or lymphadenopathy Resp normal respiratory effort and clear to auscultation bilaterally Auscultation: Negative for rales, rhonchi, wheezes or diminished lung sounds Cardio S1 normal heart sound, S2 normal heart sound and no murmurs Rate: regular rate Rhythm: regular rhythm GI non-tender, non-distended and no masses Back/Spine no CVA tenderness and normal ROM Extremity normal to inspection and full ROM Neuro oriented x3 and CN's II-XII intact bilaterally Sensorium / Orientation: alert, oriented to person, oriented to place and oriented to time; Negative for orientation impaired or lethargic Psych mental status grossly normal Attitude: No agitated Mood & Affect: Negative for depressed, anxious or tearful Skin General Skin Exam: Negative for jaundice or pallor Lesions: no lesions Rashes: no rashes Trauma: Negative for abrasion, laceration or puncture MDM MDM MDM Narrative Medical decision making narrative: 34-year-old female with viral URI symptoms. I do not think she has a true bacterial sinusitis think she has nasal congestion and sinus congestion. We discussed treatment options womanly put her on prednisone 40 mg a day for a week instead of little help her with drainage and decrease her sinus inflammation. She knows if this does not improve we can start an antibiotic for sinusitis. History & Record Review Discussion w/independent historian: Patient Discharge Plan Triage Chief Complaint: Cold Sx ED Provider: Bud Schreiber Dx/Rx/DC Orders Clinical Impression: Nasal congestion, Viral syndrome Instructions: ED Viral Syndrome (Adult) Prescriptions: New prednisone 20 mg tablet 40 mg PO DAILY 7 Days Qty: 14 0RF No Action oxycodone 5 mg tablet 5 mg PO Q8H PRN (Reason: pain) 2 Days Qty: 6 0RF ondansetron 4 mg tablet,disintegrating 4 mg PO Q8H PRN PRN (Reason: Nausea) Qty: 10 0RF Primary Care Provider: Kindra Nelson NP Referrals: Kindra Nelson NP, LATHE WINDER-C [Primary Care Provider] - 1 Week if not improving Activity Restrictions/Additional Instructions: Plenty fluids and rest. Motrin and Tylenol for pain. Prednisone daily for 1 week to decrease nasal congestion and help with drainage. Follow-up if not improving if this is not getting better we may have to treat you for a true sinus infection with antibiotics. Print Language: German Disposition Disposition: Home, Self Care
[2024-11-23 19:10] VITALS: BP 133/70; PULSE 66; RESP 18; TEMP 36.6; O2SAT 100
[2024-11-23] MEDS: predniSONE 20 MG Tablet 40 MG PO (19:19)
== END 2024-11-23 19:21 | disposition home or self-care (01) ==
PROVIDERS: Emergency Provider Emergency Medicine; PCP Nurse Practitioner Family; Visit Provider Emergency Medicine
DX: R09.81 Nasal congestion (principal); B34.9 Viral infection, unspecified; K08.89 Other specified disorders of teeth and supporting structures; F17.210 Nicotine dependence, cigarettes, uncomplicated
CPT/HCPCS: 99282